=== PATIENT | female | born 1950 | race Caucasian/White ===

== ENCOUNTER → 2018-01-06 14:38 | Outpatient (CLI) | payer OTHER, MEDICARE, SELFPAY ==
--- NOTE | 2018-01-06 14:43 | CT_ITS ---
CT lung screening EXAM: CT LUNG LOW DOSE WO CONTRAST HISTORY: 30 pack-year smoking history asymptomatic for lung cancer ITS.REASON: HX TOBACCO USE ORDERING PHYSICIAN: Nino Katz MD PATIENT AGE: 67 years COMPARISON: 06/01/2016 TECHNIQUE: The exam was performed on a GE [employer] Speed [address] scanner using 2.90 mGy CTDI. A low dose helical CT CHEST was performed on a multi-detector scanner. All CT scans at the facility use one or more dose reduction, viz: automated exposure control, ma/kV adjustment per patient size (including targeted exams where dose is matched to indication, i.e. head), or iterative reconstruction technique. The LDCT was performed in a facility that meets the criteria for the screening program. Data regarding this exam was submitted to ACR which is an approved registry. The order for this exam indicates that it came as a result of a lung cancer screening counseling shard decision-making visit that included all the elements required of such a visit including smoking cessation. The radiologist interpreting this exam meets the CMS criteria for the LDCT lung cancer screening program. The exam is reported using the Lung-RADS classification scale and reported to the ACR registry. NOTE: This study was performed for the specific purposes of lung cancer screening and is not an alternative to diagnostic chest CT. RADIATION DOSE: CTDI vol(CT dose Index-volume) = 2.90mG DLP (Dose Length Product) = 97.95 mGcm FINDINGS: Centrilobular emphysema with hyperinflation and attenuation of peripheral pulmonary vessels and bronchial thickening consistent with COPD. Scattered fibrotic changes are once again noted. The previously noted parenchymal opacity in the medial aspect of the right lower lobe is no longer apparent likely due to an area of infiltrate and or atelectasis. No new nodules are evident. No suspicious findings. Coronary artery calcifications are present. There is a small ventral abdominal wall hernia containing fat which is 4 cm below the xiphoid. IMPRESSION: 1. Lung RADS Category: 2, benign 2. Other findings: Centrilobular emphysema/COPD. Coronary artery calcifications Ventral abdominal wall hernia RECOMMENDATIONS: 12 month LDCT follow-up
== END ==
PROVIDERS: PCP Family Medicine; Visit Provider Family Medicine
DX: Z12.2 Encounter for screening for malignant neoplasm of respiratory organs (principal); Z87.891 Personal history of nicotine dependence

== ENCOUNTER → 2018-03-31 14:19 | Outpatient (CLI) | payer OTHER, MEDICARE, SELFPAY ==
[2018-03-31 14:53] LABS: Basophils # 0.1 K/mm3 (0-0.2); Basophils % 0.8 % (0.1-2.0); Eosinophils # 0.3 K/mm3 (0.0-0.4); Eosinophils % 4.5 % (0.1-12.0); Hematocrit 47.9 % (37.0-47.0); Hemoglobin 15.8 g/dL (12.2-16.2); Lymphocytes # 1.8 K/mm3 (0.7-4.5); Lymphocytes % 25.5 % (10-50); Mean Corpuscular Hemoglobin 30.9 pg (27.0-31.2); Mean Corpuscular Volume 93.7 fl (81-99); Mean Platelet Volume 7.5 fl (7.4-10.4); Monocytes # 0.4 K/mm3 (0.1-1.0); Neutrophils # 4.6 K/mm3 (1.8-7.8); Neutrophils % 64.2 % (37.0-80.0); Platelet Count 285 K/mm3 (142-424); Red Blood Count 5.11 M/mm3 (4.20-5.40); Red Cell Distribution Width 13.3 % (11.5-17.5); White Blood Count 7.1 K/mm3 (4.8-10.8)
[2018-03-31 15:28] LABS: Alanine Aminotransferase 31 U/L (12-78); Albumin Level 3.7 gm/dL (3.4-5.0); Albumin/Globulin Ratio 1.2 (1.1-1.8); Alkaline Phosphatase 79 U/L (46-116); Anion Gap 10.4 mEq/L (5-15); Aspartate Amino Transferase 14 U/L (15-37); Bilirubin,Total 0.7 mg/dL (0.2-1.0); Blood Urea Nitrogen 21 mg/dL (7-18); CKMB Relative Index 3.1 U/L (0-4.0); Calcium 9.3 mg/dL (8.5-10.1); Carbon Dioxide 33 mmol/L (21.0-32.0); Chloride 102 mmol/L (98-107); Chol/HDL Ratio 2.8 (1-3.5); Cholesterol 238 mg/dL (140-200); Creatine Kinase 39 U/L (26-192); Creatine Kinase MB 1.2 ng/ml (0.0-3.6); Creatinine,Serum 0.88 mg/dL (0.55-1.02); Estimated Glomerular Filt Rate 64 ml/min (>60); GFR (African American) 77 ML/MIN (>60); Glucose 106 mg/dL (74-106); HDL Cholesterol 84 mg/dL (29-89); LDL Cholesterol 132 mg/dL (0-130); Potassium 4.4 mmoL/L (3.5-5.1); Sodium 141 mmol/L (136-145); Thyroid Stimulating Hormone 1.65 uIU/ml (0.358-3.740); Total Protein,Serum 6.7 gm/dL (6.4-8.2); Triglycerides 112 mg/dL (30-200); Troponin I 0.14 ng/ml (0.00-0.06); VLDL Cholesterol 22 mg/dL (0-40)
== END ==
PROVIDERS: PCP Family Medicine; Visit Provider Family Medicine
DX: R07.9 Chest pain, unspecified (principal); E78.00 Pure hypercholesterolemia, unspecified
CPT/HCPCS: 36415; 80053; 80061; 82550; 82553; 84443; 84484; 85025; 93005

== ENCOUNTER → 2019-02-19 15:15 | Outpatient (CLI) | payer OTHER, MEDICARE, SELFPAY ==
--- NOTE | 2019-02-19 15:21 | CT_ITS ---
PROCEDURE: CT LUNG SCREENING CLINICAL INDICATION: HX TOBACCO USE Thirty pack-year smoking history asymptomatic for lung cancer COMPARISON: LDCTLCAS LDCT FOR LUNG CA SCREEN from 06/01/[address] lung screening from 01/06/2018 TECHNIQUE: The exam was performed on a GE Light Speed [address] scanner using 2.90 mGy CTDI. A low dose helical CT CHEST was performed on a multi-detector scanner. All CT scans at the facility use one or more dose reduction, viz: automated exposure control, ma/kV adjustment per patient size (including targeted exams where dose is matched to indication, i.e. head), or iterative reconstruction technique. The LDCT was performed in a facility that meets the criteria for the screening program. Data regarding this exam was submitted to ACR which is an approved registry. The order for this exam indicates that it came as a result of a lung cancer screening counseling shard decision-making visit that included all the elements required of such a visit including smoking cessation. The radiologist interpreting this exam meets the CMS criteria for the LDCT lung cancer screening program. The exam is reported using the Lung-RADS classification scale and reported to the ACR registry. NOTE: This study was performed for the specific purposes of lung cancer screening and is not an alternative to diagnostic chest CT. RADIATION DOSE: CTDI vol(CT dose Index-volume) = 2.90mG DLP (Dose Length Product) = 102.26 mGcm FINDINGS: Centrilobular emphysema, coronary artery calcification. Small hiatal hernia. There is a 7 mm nodular opacity in the right CP angle laterally which could be due to an area of fibrosis. OTHER FINDINGS: Ventral abdominal wall hernia containing fat. 2.7 cm left adrenal nodule unchanged IMPRESSION: Lung rads category 3 probably benign. 7 mm nodular opacity right lung base laterally. Recommend six-month CT follow-up Dictated by: Pito العلي MD 02/25/2019 20:33 Electronically signed by Pito العلي MD in [place] 02/25/2019 20:33
== END ==
PROVIDERS: PCP Family Medicine; Visit Provider Family Medicine
DX: Z87.891 Personal history of nicotine dependence (principal); Z12.2 Encounter for screening for malignant neoplasm of respiratory organs

== ENCOUNTER → 2019-04-24 13:54 | Outpatient (CLI) | payer MEDICARE, SELFPAY ==
--- NOTE | 2019-04-24 14:03 | XR_ITS ---
PROCEDURE: XR LUMBAR SPINE 2-3V CLINICAL INDICATION: RT JOINT AIN COMPARISON: No exams were available for comparison FINDINGS: There is no acute fracture or dislocation. There is multilevel degenerative disc disease from L1-2 to L4-5. Greatest loss of disc space height is L4-5. Mild sclerosis of both sacroiliac joints compatible with sacroiliitis is noted. Atherosclerotic calcifications are incidentally noted in the abdominal aorta and iliac vessels. IMPRESSION: No acute findings. Dictated by: Harley Rendon 04/24/2019 15:28 Electronically signed by Harley Rendon in [place] 04/24/2019 15:28
--- NOTE | 2019-04-24 14:03 | XR_ITS ---
PROCEDURE: XR HIP RT 2-3V W/PELVIS CLINICAL INDICATION: RT LOWER LEG JOINT PAIN COMPARISON: PELAP PELVIS AP ONLY from 06/02/2013 FINDINGS: No fracture or dislocation is evident. There is mild osteitis pubis and bilateral sacroiliitis and degenerative disc disease is noted at L4-5, L5-S1. No lytic or blastic change. Unremarkable soft tissues. IMPRESSION: No acute findings. Dictated by: Harley Rendon 04/24/2019 15:30 Electronically signed by Harley Rendon in [place] 04/24/2019 15:30
--- NOTE | 2019-04-24 14:03 | XR_ITS ---
PROCEDURE: XR KNEE RT 3V CLINICAL INDICATION: RT LOWER LEG JOINT PAIN COMPARISON: No exams were available for comparison FINDINGS: No fracture or dislocation. No lytic or blastic change. There is normal mineralization. There is mild degenerative loss of the medial compartment cartilaginous joint space. No erosive changes evident. Other findings:Chondrocalcinosis is seen at medial and lateral compartment joint spaces. IMPRESSION: Mild degenerative findings, no acute findings. Dictated by: Harley Rendon 04/24/2019 15:25 Electronically signed by Harley Rendon in [place] 04/24/2019 15:25
== END ==
PROVIDERS: PCP Family Medicine; Visit Provider Family Medicine
DX: M25.561 Pain in right knee (principal)
CPT/HCPCS: 72100; 73502; 73562

== ENCOUNTER → 2019-05-07 10:20 | Outpatient (CLI) | payer MEDICARE, SELFPAY ==
--- NOTE | 2019-05-07 10:23 | MM_ITS ---
PROCEDURE: MM DIG SCREENING MAMM BI W/CAD BILATERAL DIGITAL BREAST TOMOSYNTHESIS INCLUDED Patient Age:69Y CLINICAL INDICATION: SCREENING 69-year-old. No hormones no new complaints noncontributory family history COMPARISON: No exams were available for comparison previous mammogram studies have been purged,, done 20 years ago TECHNIQUE: Standard CC and MLO images were obtained. R2 CAD reviewed. Bilateral digital breast tomosynthesis included FINDINGS: Moderate residual scattered fibroglandular densities, most evident throughout superior breast bilateral. Right breast no areas of concern. Follow-up right mammogram 1 year Left breast: Minimal asymmetric areasdensity left breast, more most notable area at the central breast noted. However the tomosynthesis views suggest that this is due to overlapping fibroglandular elements with no definitive underlying lesion. I would recommend encourage follow-up 1 year for ongoing evaluation IMPRESSION: Mild asymmetry but no discrete area of significant concern at this time Bilateral follow-up 1 year recommended and and should be emphasized/encouraged to confirm baseline appearance. BI-RAD Category: 2 Benign Finding(s) FOLLOW-UP: 1YR 1 Year Follow-up (A letter has been sent to the patient regarding results of the study.) Dictated by: Hoang Stevenson MD 05/10/2019 09:36 Electronically signed by Hoang Stevenson MD in [place] 05/10/2019 09:36
== END ==
PROVIDERS: PCP Family Medicine; Visit Provider Family Medicine
DX: Z12.31 Encounter for screening mammogram for malignant neoplasm of breast (principal)
CPT/HCPCS: 77063; 77067

== ENCOUNTER → 2019-09-12 10:42 | Outpatient (CLI) | payer MEDICARE, SELFPAY ==
--- NOTE | 2019-09-12 10:47 | CT_ITS ---
PROCEDURE: CT LUNG SCREENING CLINICAL INDICATION: LUNG NODULE 45 pack year smoking history Quit 10 years ago COMPARISON: LDCTLCAS LDCT FOR LUNG CA SCREEN from 06/01/2016 TECHNIQUE: The exam was performed on a GE [employer] Speed [address] scanner using 2.90 mGy CTDI. A low dose helical CT CHEST was performed on a multi-detector scanner. All CT scans at the facility use one or more dose reduction, viz: automated exposure control, ma/kV adjustment per patient size (including targeted exams where dose is matched to indication, i.e. head), or iterative reconstruction technique. The LDCT was performed in a facility that meets the criteria for the screening program. Data regarding this exam was submitted to ACR which is an approved registry. The order for this exam indicates that it came as a result of a lung cancer screening counseling shard decision-making visit that included all the elements required of such a visit including smoking cessation. The radiologist interpreting this exam meets the CMS criteria for the LDCT lung cancer screening program. The exam is reported using the Lung-RADS classification scale and reported to the ACR registry. NOTE: This study was performed for the specific purposes of lung cancer screening and is not an alternative to diagnostic chest CT. RADIATION DOSE: CTDI vol(CT dose Index-volume) = 2.90mG DLP (Dose Length Product) = 101.34 mGcm Lung Rads Category: FINDINGS: COPD with centrilobular emphysema and scattered areas of scarring OTHER FINDINGS: There are coronary artery calcifications. There is a ventral abdominal wall hernia which contains fat 3 cm inferior to the xiphoid 2.7 cm left adrenal nodule measuring near 6 Hounsfield units consistent with an adenoma. 1 cm hypodensity right hepatic lobe image 74 indeterminate IMPRESSION: 1. Lung rads category 1, negative 2. Recommend annual LD CT 3. Ventral abdominal wall hernia containing fat 4. Left adrenal nodule which may be due to an adenoma. 5. Indeterminate 1 cm right hepatic lobe hypodense lesion. CT or MRI with hemangioma protocol may provide further evaluation Dictated by: Pito العلي MD 09/16/2019 13:24 Electronically signed by Pito العلي MD in [place] 09/16/2019 13:24
== END ==
PROVIDERS: PCP Family Medicine; Visit Provider Family Medicine
DX: Z87.891 Personal history of nicotine dependence (principal); Z12.2 Encounter for screening for malignant neoplasm of respiratory organs

== ENCOUNTER 2019-10-22 14:15 | Emergency (ER) | payer MEDICARE, SELFPAY ==
[2019-10-22 14:20] VITALS: BP 163/101; PULSE 87; RESP 20; O2SAT 88; BMI 29.2
--- NOTE | 2019-10-22 14:38 | HMH.EDGENADL ---
ED Disposition Clinical Impression: Hypertension Qualifiers: Hypertension type: essential hypertension Qualified Code(s): I10 - Essential (primary) hypertension Disposition: Home, Self-Care Condition on Discharge: Good Instructions: DI for High Blood Pressure Referrals: Omayra Ruiz [Primary Care Provider] - 3 days - Critical Care Critical Care Time: No Attestation: On 10/22/19, the high probability of a clinically significant, sudden or life threatening deterioration of the following system(s) required my full and direct attention, intervention and personal management. The time I documented below is in addition to time spent performing reported procedures but includes the following listed in this critical care notation. Medical Decision Making - Medical Records Medical records reviewed: Yes: I reviewed the patient's medical records. - [place] Inquiry Pt receiving controlled substance: No Vital Signs: 10/22/19 14:20 Pulse Rate [Radial] 87 Respiratory Rate 20 Blood Pressure [Right Arm] 163/101 H Blood Pressure Mean [Right Arm] 121 Blood Pressure Source [Right Arm] Automatic Cuff Blood Pressure Position [Right Arm] Sitting 02 Sat by Pulse Oximetry 88 L Oxygen Delivery Method Room Air Medical Decision Narrative: Patient is very anxious, but after she calmed down we talk more about blood pressure control and things to be concerned about with acute blood pressure issue such as lateralizing motor or sensory changes, acute chest pain or shortness of breath, lightheadedness, etc. After some education about blood pressure management and symptoms to be concerned about, patient is feeling much better, actually tells me that she does not have any symptoms currently and does not want to move forward with further work-up. I have offered labs, CT head, EKG, but she is feeling much better and her blood pressure is actually 145 systolic, down from 163 systolic on initial presentation. I have offered our services if she changes her mind about further work-up, but she would like to go home at this time and is discharged. She does not currently exhibit any signs consistent with CVA, ACS, PE, hypertensive emergency. General Adult HPI - General Chief complaint: Recheck/Abnormal Lab/Rx Stated complaint: Blood Pressure high Time Seen by Provider: 10/22/19 14:30 Mode of Arrival: Ambulatory Limitations: No Limitations Description of Symptoms (Recalled from ER Triage Doc. by RN): Per patient she checked her BP this morning and it was high. Complaint of headache and left shoulder pain. - History of Present Illness HPI narrative: This is a 69-year-old female with a past medical history significant for anxiety, hypertension, COPD who presents to the emergency department after noticing high blood pressure at home. She has been having headaches intermittently for quite some time and intermittent left shoulder pain. She does not have any chest pain or shortness of breath. Patient states that she takes 3 blood pressure medications and takes her blood pressure 3 times daily. She is very concerned about her blood pressure because it does not ever seem to be under good control. She states that she has been very anxious lately as well because she mostly stays in her house without seeing anyone and does not allow anyone to come see her. She has not had any recent fevers, vomiting, diarrhea or new cough. She does not currently have a headache or shoulder pain, though she has had these occasionally over the last several weeks. - Related Data Home Medications Medication Instructions Recorded Confirmed Amlodipine Besylate [Amlodipine 5 mg PO DAILY 03/28/19 04/02/19 5mg tab] Citalopram Hydrobromide [Celexa] 10 mg PO DAILY 03/28/19 04/02/19 Losartan/Hydrochlorothiazide 1 each PO DAILY 03/28/19 04/02/19 [Losartan-Hctz 100-25 mg Tab] Allergies Allergy/AdvReac Type Severity Reaction Status Date / Time codeine [CODEINE] A
[2019-10-22 14:42] VITALS: BP 145/84; PULSE 75; RESP 18; TEMP 36.7; O2SAT 96
== END 2019-10-22 14:43 | disposition home or self-care (01) ==
PROVIDERS: Emergency Provider Emergency Medicine; PCP Family Medicine
DX: I16.0 Hypertensive urgency (principal); R51 Headache; M25.512 Pain in left shoulder; J44.9 Chronic obstructive pulmonary disease, unspecified; D64.9 Anemia, unspecified; F41.9 Anxiety disorder, unspecified; Z88.5 Allergy status to narcotic agent; Z90.49 Acquired absence of other specified parts of digestive tract; Z79.899 Other long term (current) drug therapy
CPT/HCPCS: 99281

== ENCOUNTER → 2020-07-09 13:09 | Outpatient (CLI) | payer MEDICARE, SELFPAY ==
--- NOTE | 2020-07-09 13:12 | MM_ITS ---
PROCEDURE INFORMATION: Exam: MG Screening 3D Mammography Exam date and time: 07/09/2020 1:12 PM Age: 70 years old Clinical indication: Screening mammogram TECHNIQUE: Imaging protocol: Screening tomosynthesis and 2D mammography including computer-aided detection (CAD) when performed. COMPARISON: MG MM DIG SCREENING MAMM BI W/CAD 05/07/2019 10:25 AM FINDINGS: MAMMOGRAPHY: Breast composition: The breast tissue is heterogeneously dense, which may obscure small masses. Mass: None. Architectural distortion: No new or suspicious architectural distortion. Calcifications: Stable benign-appearing calcifications are present. No new or suspicious cluster of microcalcifications have developed. Asymmetric density: No new or suspicious asymmetric density is present Skin thickening: None. Axillary adenopathy: None. IMPRESSION: No mammographic evidence of malignancy. Recommend annual screening mammography unless otherwise clinically indicated. ASSESSMENT: BI-RADS category 2: Benign
== END ==
PROVIDERS: PCP Family Medicine; Visit Provider Family Medicine
DX: Z12.31 Encounter for screening mammogram for malignant neoplasm of breast (principal)
CPT/HCPCS: 77063; 77067

== ENCOUNTER → 2021-08-15 10:44 | Outpatient (CLI) | payer MEDICARE, SELFPAY | PROVIDERS: PCP Family Medicine; Visit Provider Ophthalmology | DX: Z01.812 Encounter for preprocedural laboratory examination (principal); Z20.822 Contact with and (suspected) exposure to COVID-19 | CPT/HCPCS: C9803; U0003; U0005 ==

== ENCOUNTER 2021-08-18 08:55 | Day surgery (SDC) | payer MEDICARE, SELFPAY ==
[2021-08-17 11:43] VITALS: BMI 27.4
[2021-08-18] VITALS (7 sets, daily range): BP systolic 136–165; BP diastolic 61–71; PULSE 53–60; RESP 16–18; TEMP 36.4–37; O2SAT 93–100
--- NOTE | 2021-08-18 12:32 | SUR.PHASEII ---
Patient had YAG procedure then returned to preop for cataract procedure. Patient tolerated YAG procedure well
== END 2021-08-18 12:00 | disposition home or self-care (01) ==
LOC: OUTP 08:57
PROVIDERS: PCP Family Medicine; Visit Provider Ophthalmology
PROC: (CPT 66821; principal; 2021-08-18 10:00)
DX: H26.9 Unspecified cataract (principal); J44.9 Chronic obstructive pulmonary disease, unspecified; M19.90 Unspecified osteoarthritis, unspecified site; F41.9 Anxiety disorder, unspecified; Z86.79 Personal history of other diseases of the circulatory system
CPT/HCPCS: 66984; V2632

== ENCOUNTER 2021-10-30 08:49 | Emergency (ER) | payer MEDICARE, SELFPAY ==
--- NOTE | 2021-10-30 09:29 | EXP.UTC ---
Discharge Plan Disposition Patient Disposition: Home, Self-Care Condition: Good Prescriptions Prescriptions: New Paxlovid (EUA) 300 mg (150 mg x 2)-100 mg tablet See Rx Instructions PO .COMPLEX Qty: 30 0RF Rx Instructions: take TWO 150 mg tablets of nirmatrelvir with ONE 100 mg tablet of ritonavir twice daily for 5 days azithromycin [Zithromax] 250 mg tablet 250 mg PO UD DOSE PK Qty: 6 0RF Rx Instructions: Take two (2) tablets today, then one (1) tablet days #2 thru #5 benzonatate [benzonatate] 100 mg capsule 100 mg PO TIDP PRN (Reason: Cough) Qty: 30 0RF methylprednisolone 4 mg Tablets,Dose Pack 4 mg PO DIRECTED Qty: 21 0RF No Action citalopram 10 MG tablet 10 mg PO DAILY amlodipine 5 MG tablet 10 mg PO DAILY hydrochlorothiazide 25 MG tablet 25 mg PO DAILY losartan 100 MG tablet 100 mg PO DAILY Referrals Referrals: Omayra Ruiz [Primary Care Provider] - Enter time for follow up Activity Restrictions/Add. Instructions Additional Instructions/Restrictions: Drink plenty of fluids. Take tylenol or ibuprofen for pain or fever. Take the medications as directed. Follow up with your regular doctor. GO TO THE ER FOR ANY WORSENING SYMPTOMS Quarantine until you know the results of your covid-19 test. Notify your school or workplace of your results and follow their instructions regarding return to work/school. Clinical Impressions Clinical Impression: Close exposure to COVID-19 virus, Acute bronchitis Instructions Patient Instructions: Acute Bronchitis, DI for Acute Bronchitis, Coronavirus Disease 2019, Preventing the Spread of Coronavirus Discharge Instructions Discharge ED Provider: Luke Conner [facility] HPI General Stated complaint: Cough, fever,headache, covid test Time Seen by Provider: 10/30/21 09:28 History of Present Illness Provider Complaint: He states that for the past 2 days he has had sinus congestion, sore throat and body aches. Related Data Home Medications Medication Instructions Recorded Confirmed amlodipine 5 mg tablet 10 mg PO DAILY bp 03/28/19 10/30/21 citalopram 10 mg tablet 10 mg PO DAILY Anxiety 03/28/19 10/30/21 hydrochlorothiazide 25 mg tablet 25 mg PO DAILY bp 08/17/21 10/30/21 losartan 100 mg tablet 100 mg PO DAILY BP 08/17/21 10/30/21 Previous Rx's Medication Instructions Recorded azithromycin 250 mg tablet 250 mg PO UD DOSE PK #6 tabs 10/30/21 (Zithromax) benzonatate 100 mg capsule 100 mg PO TIDP PRN Cough #30 caps 10/30/21 methylprednisolone 4 mg tablets in 4 mg PO DIRECTED #21 tabs 10/30/21 a dose pack nirmatrelvir 300 mg (150 mg x See Rx Instructions PO .COMPLEX 10/30/21 2)-ritonavir 100 mg tablet (EUA) #30 tabs (Paxlovid 300 mg () Allergies Allergy/AdvReac Type Severity Reaction Status Date / Time codeine [CODEINE] Allergy Mild NA-NAUSEA/V Verified 10/30/21 09:39 OMITING acetaminophen [From [facility]] Allergy Unknown NA-NAUSEA/V Verified 10/30/21 09:39 OMITING hydrocodone [From [facility]] Allergy Unknown NA-NAUSEA/V Verified 10/30/21 09:39 OMITING morphine [MORPHINE] AdvReac Intermediate SICK-VOMITI Verified 10/30/21 09:39 NG albuterol AdvReac Mild Anxiety Verified 10/30/21 09:39 [facility] Social History Smoking Status: Former smoker second hand exposure: No alcohol intake: never substance use type: denies use current occupational status: retired household members: spouse housing: house current occupational exposures/hazards: No caffeine: Yes ROS Obtained: Yes All systems reviewed & no additional complaints except as documented Constitutional Constitutional: Reports chills and Reports fever(s) Eyes Eyes: Denies eye discharge ENT Ears, Nose, Mouth, and Throat: Reports as per HPI Cardiovascular Cardiovascular: Denies chest pain Respiratory Respiratory: Denies chest
[2021-10-30 09:35] VITALS: BP 163/58; PULSE 60; RESP 18; TEMP 37.1; O2SAT 96; BMI 27.4
[2021-10-30 10:13] VITALS: BP 163/58; PULSE 60; RESP 18; TEMP 37.1
== END 2021-10-30 10:21 | disposition home or self-care (01) ==
PROVIDERS: Emergency Provider Nurse Practitioner Family; PCP Family Medicine
DX: J20.9 Acute bronchitis, unspecified (principal); J02.9 Acute pharyngitis, unspecified; R51.9 Headache, unspecified; R11.0 Nausea; Z20.822 Contact with and (suspected) exposure to COVID-19; Z79.52 Long term (current) use of systemic steroids; Z88.5 Allergy status to narcotic agent; Z88.6 Allergy status to analgesic agent; Z88.8 Allergy status to other drugs, medicaments and biological substances; Z87.891 Personal history of nicotine dependence
CPT/HCPCS: 99213; C9803; G0463; U0003; U0005

== ENCOUNTER 2022-04-24 15:59 | Emergency (ER) | payer MEDICARE, SELFPAY ==
[2022-04-24] VITALS (7 sets, daily range): BP systolic 114–143; BP diastolic 50–72; PULSE 80–89; RESP 16; TEMP 36.6–36.7; O2SAT 90–96; BMI 29.2
--- NOTE | 2022-04-24 16:31 | CT_ITS ---
PROCEDURE INFORMATION: Exam: CT Abdomen And Pelvis Without Contrast Exam date and time: 04/24/2022 4:39 PM Age: 71 years old Clinical indication: Abdominal pain; Flank; Left lower quadrant (llq); Additional info: R/O kidney stone-- TECHNIQUE: Imaging protocol: Computed tomography of the abdomen and pelvis without contrast. Radiation optimization: All CT scans at this facility use at least one of these dose optimization techniques: automated exposure control; mA and/or kV adjustment per patient size (includes targeted exams where dose is matched to clinical indication); or iterative reconstruction. Other protocol: This patient has received 0 known CTs and 0 known cardiac nuclear medicine studies in the 12 months prior to the current study. COMPARISON: CR XR HIP RT 2-3V W/PELVIS 04/24/2019 2:08 PM FINDINGS: Lungs: Emphysematous changes at the lung bases. Liver: Small hypodensities x2 difficult to characterize fully. They are probably simple cysts or hemangiomas. No other acute changes. Gallbladder and bile ducts: Absent gallbladder. Normal bile ducts. Pancreas: Normal. No ductal dilation. Spleen: Normal. No splenomegaly. Adrenal glands: 3.8 cm left adrenal mass. Hounsfield units are -19 at the low end and a mean of 30. The right adrenal gland is normal. Kidneys and ureters: 8.6 cm simple left renal cortical cyst. No stones or hydronephrosis. Stomach and bowel: Mildly prominent loops of small intestine with mucosal edema. Most of the prominent loops are in the left flank. The remaining intestine is unremarkable. No other inflammatory change. No obstruction. Appendix: No evidence for appendicitis. Normal diameter. No inflammation. Intraperitoneal space: Unremarkable. No free air. No significant fluid collection. Vasculature: Unremarkable. No abdominal aortic aneurysm. Lymph nodes: Unremarkable. No enlarged lymph nodes. Urinary bladder: Unremarkable as visualized. Reproductive: Normal uterus. No adnexal masses or fluid collections. Bones/joints: Unremarkable. No acute fracture. Soft tissues: Unremarkable. IMPRESSION: 1. Mild nonspecific changes to the small intestine, most likely viral enteritis or a food-borne illness. No bowel obstruction. 2. 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 3. Large simple left renal cortical cyst. 4. No renal tract stones. COMMENTS: 1. Consistent with the [employer] [place] [employer]'s Incidental Findings Committee white paper (J Am Jorge Radiol 2017): For any incidental adrenal lesion greater than or equal to 1 cm but less than or equal to 4 cm classified in this report as benign, likely benign, or containing fat (including classification as an adenoma or myelolipoma), no follow-up imaging is recommended per consensus recommendations based on imaging criteria. Further lab evaluation could be pursued if warranted based on clinical findings. 2. Consistent with the [employer] [place] [employer]'s Incidental Findings Committee white paper (J Am Jorge Radiol 2018): Any incidental renal lesion less than 1 cm or classified as too small to characterize, or any incidental cystic renal lesion characterized as simple-appearing, is likely benign. No follow-up imaging is recommended for these lesions per consensus recommendations based on imaging criteria.
[2022-04-24 16:37] LABS: Microscopic, Urine URINE MICROSCOPIC (MICROSCOPIC)
[2022-04-24 16:38] LABS: Appearance,Urine SL CLOUDY (Clear); Bilirubin,Urine Negative (Negative); Blood, Urine 2+ (Negative); Color,Urine YELLOW (Yellow); Glucose,Urine (UA) Negative (Negative); Ketones,Urine TRACE (Negative); Leukocyte Esterase,Urine 1+ (Negative); Nitrate,Urine POSITIVE (Negative); Protein,Urine 1+ (Negative); Urobilinogen,Urine 0.2 EU/dl (0.2)
[2022-04-24 16:40] LABS: Basophils # 0.1 K/mm3 (0-0.2); Basophils % 0.7 % (0.1-2.0); Eosinophils # 0.1 K/mm3 (0.0-0.4); Eosinophils % 1.7 % (0.1-12.0); Hematocrit 44.7 % (37.0-47.0); Lymphocytes % 13.5 % (10-50); Mean Corpuscular HGB Conc 33.5 g/dL (31.8-35.4); Mean Corpuscular Hemoglobin 30.3 pg (27.0-31.2); Mean Corpuscular Volume 90.6 fl (81-99); Mean Platelet Volume 8.2 fl (7.4-10.4); Monocytes # 0.4 K/mm3 (0.1-1.0); Monocytes % 4.7 % (1.7-9.3); Neutrophils % 79.4 % (37.0-80.0); Platelet Count 214 K/mm3 (142-424); Red Blood Count 4.93 M/mm3 (4.20-5.40); Red Cell Distribution Width 12.9 % (11.5-17.5); White Blood Count 7.5 K/mm3 (4.8-10.8)
[2022-04-24 16:41] LABS: Chloride 98 mmol/L (98-107)
[2022-04-24 16:42] LABS: Sodium 140 mmol/L (136-145)
[2022-04-24 16:44] LABS: Alanine Aminotransferase 21 U/L (12-78); Aspartate Amino Transferase 24 U/L (14-36); Blood Urea Nitrogen 19 mg/dl (7-17); Creatinine Clearance Estimated 57 mL/min (50-200); Estimated Glomerular Filt Rate 70 ml/min (>60); GFR (African American) 85 ML/MIN (>60)
[2022-04-24 16:45] LABS: Albumin Level 4.5 g/dl (3.5-5.0); Albumin/Globulin Ratio 1.7 (1.1-1.8); Alkaline Phosphatase 78 U/L (38-126); Calcium 9.1 mg/dl (8.4-10.2); Carbon Dioxide 39 mmol/L (22.0-30.0); Globulin 2.7 g/dL (1.3-3.2); Glucose 110 mg/dl (74-100); Total Protein,Serum 7.2 g/dl (6.3-8.2)
[2022-04-24 16:52] LABS: Bacteria,Urine 1+ /lpf
--- NOTE | 2022-04-24 17:02 | HMH.EDGENADL ---
Discharge Plan Disposition Patient Disposition: Home, Self-Care Condition: Good Prescriptions Prescriptions: New cefdinir 300 mg capsule 300 mg PO BID 10 Days Qty: 20 0RF No Action Paxlovid (EUA) 300 mg (150 mg x 2)-100 mg tablet See Rx Instructions PO .COMPLEX Qty: 30 0RF Rx Instructions: take TWO 150 mg tablets of nirmatrelvir with ONE 100 mg tablet of ritonavir twice daily for 5 days azithromycin [Zithromax] 250 mg tablet 250 mg PO UD DOSE PK Qty: 6 0RF Rx Instructions: Take two (2) tablets today, then one (1) tablet days #2 thru #5 benzonatate [benzonatate] 100 mg capsule 100 mg PO TIDP PRN (Reason: Cough) Qty: 30 0RF methylprednisolone 4 mg Tablets,Dose Pack 4 mg PO DIRECTED Qty: 21 0RF citalopram 10 MG tablet 10 mg PO DAILY amlodipine 5 MG tablet 10 mg PO DAILY hydrochlorothiazide 25 MG tablet 25 mg PO DAILY losartan 100 MG tablet 100 mg PO DAILY Referrals Follow up/Referrals: Omayra Ruiz [Primary Care Provider] - See instructions Activity Restrictions/Add. Instructions Additional Instructions/Restrictions: Omnicef as prescribed. Urine culture has been performed, results generally take 2 to 3 days. Follow-up the results of this test with your primary care provider within 2 to 3 days. Continue Tylenol or ibuprofen for pain. Clinical Impressions Clinical Impression: Back pain Instructions Patient Instructions: DI for Low Back Pain Discharge ED Provider: Mychal To General Adult HPI General Chief complaint: Abdominal Pain Stated complaint: back pain, difficult urination Time Seen by Provider: 04/24/22 16:56 Mode of Arrival: Ambulatory Source of Information: Patient Limitations: No Limitations Description of Symptoms (Recalled from ER Triage Doc. by RN): pt comes in with c/o left kidney/back pain. ongoing for a few days. pt reports chills also. History of Present Illness HPI narrative: Patient states that for a few days she has left-sided lower back pain which she thinks is coming from her kidney. She states that she has had 1 previous kidney stone. She thought this might be a kidney stone because the pain traveled today to her left suprapubic area as well, so she thought it might be a stone that was moving. She says that she also had a fever 1 day. She complains of some urinary frequency and slight urgency. No hematuria noted. No vomiting. She is also concerned about a UTI. Related Data Home Medications Medication Instructions Recorded Confirmed amlodipine 5 mg tablet 10 mg PO DAILY bp 03/28/19 10/30/21 citalopram 10 mg tablet 10 mg PO DAILY Anxiety 03/28/19 10/30/21 hydrochlorothiazide 25 mg tablet 25 mg PO DAILY bp 08/17/21 10/30/21 losartan 100 mg tablet 100 mg PO DAILY BP 08/17/21 10/30/21 Previous Rx's Medication Instructions Recorded azithromycin 250 mg tablet 250 mg PO UD DOSE PK #6 tabs 10/30/21 (Zithromax) benzonatate 100 mg capsule 100 mg PO TIDP PRN Cough #30 caps 10/30/21 methylprednisolone 4 mg tablets in 4 mg PO DIRECTED #21 tabs 10/30/21 a dose pack nirmatrelvir 300 mg (150 mg See Rx Instructions PO .COMPLEX 10/30/21 x2)-ritonavir 100 mg tablet,dose #30 tabs pack(EUA) (Paxlovid) cefdinir 300 mg capsule 300 mg PO BID 10 days #20 caps 04/24/22 Allergies Allergy/AdvReac Type Severity Reaction Status Date / Time codeine [CODEINE] Allergy Mild NA-NAUSEA/V Verified 10/30/21 09:39 OMITING acetaminophen [From LORTAB] Allergy Unknown NA-NAUSEA/V Verified 10/30/21 09:39 OMITING hydrocodone [From LORTAB] Allergy Unknown NA-NAUSEA/V Verified 10/30/21 09:39 OMITING morphine [MORPHINE] AdvReac Intermediate SICK-VOMITI Verified 10/30/21 09:39 NG albuterol AdvReac Mild Anxiety Verified 10/30/21 09:39 [facility] Disclaimer: The information contained in this section may have been updated after the patient was seen, as this information can be updated by other
[2022-04-24 17:08] LABS: Lipase 83 U/L (23-300)
--- NOTE | 2022-04-24 17:15 | PC.NURSE ---
ROUNDED ON PT NO COMPLAINTS AT THIS TIME,DIMMED THE LIGHT SO PT COULD REST
== END 2022-04-24 18:35 | disposition home or self-care (01) ==
PROVIDERS: Emergency Provider Emergency Medicine; PCP Family Medicine
DX: M54.50 Low back pain, unspecified (principal); R35.0 Frequency of micturition; R39.15 Urgency of urination; Z87.891 Personal history of nicotine dependence
CPT/HCPCS: 74176; 80053; 81001; 83690; 85025; 87086; 87088; 87186; 96360; 99285; J0696

== ENCOUNTER 2023-01-30 19:20 | Emergency (ER) | payer MEDICARE, SELFPAY ==
[2023-01-30 19:34] VITALS: BP 144/71; PULSE 82; RESP 18; TEMP 37.4; O2SAT 95; BMI 27.4
--- NOTE | 2023-01-30 19:52 | XR_ITS ---
PROCEDURE INFORMATION: Exam: XR Chest Exam date and time: 01/30/2023 7:57 PM Age: 72 years old Clinical indication: Dyspnea TECHNIQUE: Imaging protocol: Radiologic exam of the chest. Views: 1 view. COMPARISON: CT LUNG SCREENING 09/12/2019 10:53 AM FINDINGS: Lungs: No evidence of acute pulmonary disease or infiltrates; lung vega appear clear. Pleural spaces: No evidence of pleural effusion, pneumothorax, or pleural thickening in the visualized pleural spaces. Heart/Mediastinum: Stable cardiac and mediastinal contours. Vasculature: There are calcifications of the aortic arch. Diaphragm: There is elevation of the right hemidiaphragm. Bones/joints: No evidence of acute osseous abnormalities within the visualized portions of the thoracic spine and ribs. Osseous structures appear appropriate for patient age. IMPRESSION: No dense parenchymal consolidation, pleural effusion, or pneumothorax.
--- NOTE | 2023-01-30 19:54 | HMH.EDGENADL ---
Discharge Plan Disposition Patient Disposition: Home, Self-Care Prescriptions Prescriptions: New benzonatate 100 mg capsule 100 mg PO TID PRN (Reason: cough) 5 Days Qty: 20 0RF albuterol sulfate 90 mcg/actuation HFA aerosol inhaler 4 inh inhalation Q4H PRN (Reason: shortness of breath or wheezing) Qty: 8.5 0RF Rx Instructions: 4 puffs every 4 hours for 48 hours then as needed for shortness of breath or wheezing following Paxlovid 300 mg (150 mg x 2)-100 mg tablets,dose pack See Rx Instructions .ROUTE .COMPLEX Qty: 30 0RF Rx Instructions: take TWO 150 mg tablets of nirmatrelvir with ONE 100 mg tablet of ritonavir twice daily for 5 days No Action Paxlovid 300 mg (150 mg x 2)-100 mg tablet See Rx Instructions PO .COMPLEX Qty: 30 0RF Rx Instructions: take TWO 150 mg tablets of nirmatrelvir with ONE 100 mg tablet of ritonavir twice daily for 5 days azithromycin [Zithromax] 250 mg tablet 250 mg PO UD DOSE PK Qty: 6 0RF Rx Instructions: Take two (2) tablets today, then one (1) tablet days #2 thru #5 benzonatate [benzonatate] 100 mg capsule 100 mg PO TIDP PRN (Reason: Cough) Qty: 30 0RF methylprednisolone 4 mg Tablets,Dose Pack 4 mg PO DIRECTED Qty: 21 0RF citalopram 10 MG tablet 10 mg PO DAILY amlodipine 5 MG tablet 10 mg PO DAILY hydrochlorothiazide 25 MG tablet 25 mg PO DAILY losartan 100 MG tablet 100 mg PO DAILY cefdinir 300 mg capsule 300 mg PO BID 10 Days Qty: 20 0RF Referrals Follow up/Referrals: Omayra Ruiz [Primary Care Provider] - See instructions Activity Restrictions/Add. Instructions Additional Instructions/Restrictions: Your symptoms today are consistent with COVID-19 and a COPD exacerbation. Please take your inhaler as prescribed and your cough medicine and the Paxlovid return with any worsening shortness of breath or other concerns. Clinical Impressions Clinical Impression: COVID-19, Acute exacerbation of chronic obstructive pulmonary disease Discharge ED Provider: Steffen Martinez General Adult HPI General Chief complaint: Upper Respiratory Infection Stated complaint: back pain, cough,congestion,tired Time Seen by Provider: 01/30/23 19:47 Mode of Arrival: Ambulatory Source of Information: Patient Limitations: No Limitations Description of Symptoms (Recalled from ER Triage Doc. by RN): pt states she had a +covid test at home today. pt states she has been sick for a few days. pt c/o myalgia, fatigue, SWANI, a productive cough with brown sputum, fever and burning/frequent urination. pt has a HX of COPD and uses 2L NC PRN. pts RA sat was 85%. upon placing 2L NC pt has increased to 95% which is her baseline. History of Present Illness HPI narrative: Patient is a 72-year-old with history of COPD presenting today with 2 days of cough headache sore throat chest pain with a home positive COVID test. States she also has some body aches and myalgias. Has had some wheezing is on 2 L nasal cannula at home with her COPD. She also complained of 2 days of urinary frequency and urgency. Related Data Home Medications Medication Instructions Recorded Confirmed amlodipine 5 mg tablet 10 mg PO DAILY bp 03/28/19 01/30/23 citalopram 10 mg tablet 10 mg PO DAILY Anxiety 03/28/19 01/30/23 hydrochlorothiazide 25 mg tablet 25 mg PO DAILY bp 08/17/21 01/30/23 losartan 100 mg tablet 100 mg PO DAILY BP 08/17/21 01/30/23 Previous Rx's Medication Instructions Recorded azithromycin 250 mg tablet 250 mg PO UD DOSE PK #6 tabs 10/30/21 (Zithromax) benzonatate 100 mg capsule 100 mg PO TIDP PRN Cough #30 caps 10/30/21 methylprednisolone 4 mg tablets in 4 mg PO DIRECTED #21 tabs 10/30/21 a dose pack nirmatrelvir 300 mg (150 mg See Rx Instructions PO .COMPLEX 10/30/21 x2)-ritonavir 100 mg tablet,dose #30 tabs pack (Paxlovid) cefdinir 300 mg capsule 300 mg PO BID 10 days #20 caps 04/24/22 albuterol sulfate 90 mcg/actu
[2023-01-30 19:56] VITALS: BP 144/71; PULSE 83; RESP 18; TEMP 36.7; O2SAT 95
[2023-01-30 20:10] LABS: Influenza A, PCR Not Detected (NotDetected); Influenza B, PCR Not Detected (NotDetected)
[2023-01-30 20:13] LABS: Basophils % 0.1 % (0.1-2.0); Eosinophils # 0.1 K/mm3 (0.0-0.4); Eosinophils % 1.4 % (0.1-12.0); Hematocrit 41.3 % (37.0-47.0); Hemoglobin 13.7 g/dL (12.2-16.2); Lymphocytes # 0.8 K/mm3 (0.7-4.5); Lymphocytes % 9.6 % (10-50); Mean Corpuscular HGB Conc 33.2 g/dL (31.8-35.4); Mean Corpuscular Hemoglobin 30.5 pg (27.0-31.2); Mean Platelet Volume 7.8 fl (7.4-10.4); Monocytes # 0.4 K/mm3 (0.1-1.0); Monocytes % 4.9 % (1.7-9.3); Neutrophils # 7.2 K/mm3 (1.8-7.8); Neutrophils % 83.9 % (37.0-80.0); Platelet Count 151 K/mm3 (142-424); Red Blood Count 4.49 M/mm3 (4.20-5.40); White Blood Count 8.6 K/mm3 (4.8-10.8)
[2023-01-30 20:21] VITALS: PULSE 81; PULSE 87
[2023-01-30 20:21] LABS: Alanine Aminotransferase 28 U/L (12-78); Albumin/Globulin Ratio 1.5 (1.1-1.8); Alkaline Phosphatase 65 U/L (38-126); Anion Gap 12.5 mEq/L (5-15); Aspartate Amino Transferase 41 U/L (14-36); Bilirubin,Total 0.8 mg/dl (0.2-1.3); Blood Urea Nitrogen 26 mg/dl (7-17); Calcium 8.3 mg/dl (8.4-10.2); Carbon Dioxide 30 mmol/L (22.0-30.0); Chloride 93 mmol/L (98-107); Creatinine Clearance Estimated 53 mL/min (50-200); Estimated Glomerular Filt Rate 70 ml/min (>60); GFR (African American) 85 ML/MIN (>60); Globulin 2.6 g/dL (1.3-3.2); Glucose 105 mg/dl (74-100); Potassium 3.5 mmoL/L (3.5-5.1); Sodium 132 mmol/L (136-145); Total Protein,Serum 6.6 g/dl (6.3-8.2)
[2023-01-30 20:32] LABS: Troponin I 0.03 ng/ml (0.00-0.034)
--- NOTE | 2023-01-30 20:43 | PC.NURSE ---
rounded on pt no needs at this time
[2023-01-30 20:56] LABS: Coronavirus 19, PCR Detected (NotDetected)
--- NOTE | 2023-01-30 21:00 | PC.NURSE ---
Patient has attempted to urinate for UA twice with no luck. Dr. Martinez made aware.
[2023-01-30 21:08] VITALS: BP 117/58; PULSE 78; RESP 18; TEMP 36.8
== END 2023-01-30 21:13 | disposition home or self-care (01) ==
PROVIDERS: Emergency Provider Student in an Organized Health Care Education/Training Program; PCP Family Medicine
DX: U07.1 COVID-19 (principal); J44.1 Chronic obstructive pulmonary disease with (acute) exacerbation; E87.1 Hypo-osmolality and hyponatremia; R07.9 Chest pain, unspecified; R50.9 Fever, unspecified; R51.9 Headache, unspecified; R05.9 Cough, unspecified; R09.81 Nasal congestion; R07.0 Pain in throat; R53.83 Other fatigue; R30.0 Dysuria; Z87.891 Personal history of nicotine dependence
CPT/HCPCS: 71045; 80053; 84484; 85025; 87636; 96361; 96372; 96374; 96375; 99284

== ENCOUNTER 2023-11-29 07:44 | Outpatient (CLI) | payer MEDICARE, SELFPAY ==
--- NOTE | 2023-11-29 07:48 | CT_ITS ---
FINAL REPORT CLINICAL HISTORY: SCREENING FORMER SMOKER QUIT 14 YEARS AGO. SMOKED 1.5 PPD X 30 YEARS COMPARISON: 09/22/2019 and 04/24/2022 FINDINGS: CT CHEST LOW DOSE SCREENING DOSE: CTDIvol: 2.90 mGy, DLP: 102.12 mGy*cm Axial CT without IV contrast administration using low dose protocol. This study was performed with techniques to keep radiation doses as low as reasonably achievable, (ALARA). Individualized dose reduction techniques using automated exposure control or adjustment of mA and/or kV according to the patient''s size were employed. FINDINGS: There is a 2 mm nodule in the central right upper lobe well seen on image 28 of series 4, unchanged. There is minimally increased density with mixture of ground-glass opacity and reticular nodular change in the left lower lobe, favor inflammatory. Findings are well seen on images 45-48 of series 4. Note is made of moderate emphysema. Limited images of the upper abdomen reveal a left adrenal mass measuring 36 mm, previously measured 32 mm. 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 There is an incompletely imaged left renal mass measuring 64 mm which was seen on previous CT dated 2022. No pleural or pericardial effusion is seen . No adenopathy or mass lesion is present . IMPRESSION: 1. New irregular density in the left lower lobe, strongly favor inflammatory or scarring over neoplasm. Left adrenal and renal masses considered benign. LUNG RADS CATEGORY 0 RECOMMENDATION: Two-month follow-up with attention to the left lower lobe density. Reviewed, Interpreted and Dictated by Felisha Ramirez MD Transcribed by Ruth Ann Silva Authenticated and [facility]
--- NOTE | 2023-11-29 07:49 | MM_ITS ---
PROCEDURE INFORMATION: Exam: MG Bilateral Screening 3D Mammography Exam date and time: 11/29/2023 7:49 AM Age: 73 years old Clinical indication: Screening examination TECHNIQUE: Imaging protocol: Bilateral Screening tomosynthesis and 2D mammography including computer-aided detection (CAD) when performed. COMPARISON: 1. MG MM DIG SCREENING MAMM BI W/CAD 07/09/2020 1:25 PM 2. MG MM DIG SCREENING MAMM BI W/CAD 05/07/2019 10:25 AM FINDINGS: MAMMOGRAPHY: Breast composition: There are scattered areas of fibroglandular density. Mass: No suspicious masses. Architectural distortion: None. Calcifications: No suspicious calcifications. Asymmetric density: None. Skin thickening: None. Axillary adenopathy: None. IMPRESSION: No mammographic evidence of malignancy. Annual screening is recommended unless otherwise clinically indicated. ASSESSMENT: BI-RADS Category 1: Negative.
--- NOTE | 2023-11-29 08:24 | XR_ITS ---
FINAL REPORT TECHNIQUE: Bone densitometry calculations of the lumbar spine and left hip were obtained. CLINICAL HISTORY: SCREENING FINDINGS: Using L1-4, the bone mineral density of the spine is 1.006 g/cm2, corresponding to T-score of -0.4. Using the left hip, the bone mineral density of the femoral neck is 0.724 g/cm2, corresponding to a T-score of -1.1. Using the right hip, the bone mineral density of the femoral neck is 0.745 g/cm2, corresponding to a T-score of -0.9. NOTE: T-score: Standard deviation compared with peak bone mass of young adult mean. *Following the recommendations of the International Society of Bone densitometry, classification of hip BMD is based on the lower of two T-scores; total hip or femoral neck. IMPRESSION: Normal bone mineral density of the lumbar spine. Diminished bone mineral density consistent with minimal osteopenia of the left hip. Diminished bone mineral density consistent with borderline osteopenia of the right hip. FRAX data reports 9.8% major osteoporotic fracture and 1.6% hip fracture. Reviewed, Interpreted and Dictated by Felisha Ramirez MD Transcribed by Ruth Ann Silva Authenticated and [facility]
== END 2023-11-29 23:59 | disposition home or self-care (01) ==
LOC: RAD 07:45
PROVIDERS: PCP Family Medicine; Visit Provider Family Medicine
DX: Z87.891 Personal history of nicotine dependence (principal); Z12.31 Encounter for screening mammogram for malignant neoplasm of breast; M81.0 Age-related osteoporosis without current pathological fracture; Z13.820 Encounter for screening for osteoporosis; Z78.0 Asymptomatic menopausal state
CPT/HCPCS: 71271; 77063; 77067; 77080

== ENCOUNTER 2024-01-16 14:49 | Outpatient (CLI) | payer MEDICARE, SELFPAY ==
--- NOTE | 2024-01-16 14:53 | CT_ITS ---
FINAL REPORT TECHNIQUE: Axial CT images were performed from the lung apices through the upper abdomen. Coronal reformats were submitted. This study was performed with techniques to keep radiation doses as low as reasonably achievable (ALARA). Individualized dose reduction techniques using automated exposure control or adjustment of mA and/or kV according to the patient's size were employed. CLINICAL HISTORY: ABNORMAL CHEST CT COMPARISON: 11/29/2023 FINDINGS: There is no axillary adenopathy. There is no hilar or mediastinal mass or adenopathy. There is moderate left coronary artery calcification. Heart size is normal. There is no pericardial or pleural effusion. Note is made of mild pulmonary scarring. Moderate emphysema is identified. There has been interval resolution in the left lower lobe opacity. Limited mages of the upper abdomen reveal a 41 mm heterogeneous mass in the left adrenal gland which is stable. There is a supraumbilical midline ventral hernia. Hernia sac measures 7.2 cm in transverse dimension. There is a partially imaged probable small hepatic cyst and nonspecific left renal mass. IMPRESSION: Interval resolution in the left lower lobe opacity. Stable left adrenal mass. Nonspecific left renal mass. Supraumbilical midline ventral hernia. Reviewed, Interpreted and Dictated by Norm Thomas III, MD Transcribed by Ruth Ann Silva Authenticated and [facility]
== END 2024-01-16 23:59 | disposition home or self-care (01) ==
LOC: RAD 14:50
PROVIDERS: PCP Family Medicine; Visit Provider Family Medicine
DX: R93.89 Abnormal findings on diagnostic imaging of other specified body structures (principal)
CPT/HCPCS: 71250

== ENCOUNTER 2024-02-12 13:35 | Emergency (ER) | payer MEDICARE, SELFPAY ==
[2024-02-12 13:50] VITALS: BP 163/110; PULSE 85; RESP 24; TEMP 37; O2SAT 89; BMI 31.5
--- NOTE | 2024-02-12 13:55 | XR_ITS ---
PROCEDURE INFORMATION: Exam: XR Chest Exam date and time: 02/12/2024 1:55 PM Age: 73 years old Clinical indication: Shortness of breath TECHNIQUE: Imaging protocol: Radiologic exam of the chest. Views: 2 views. COMPARISON: CT CHEST WO CON 01/16/2024 2:56 PM FINDINGS: Lungs: Unremarkable. No consolidation. Pleural spaces: Unremarkable. No pleural effusion. No pneumothorax. Heart/Mediastinum: Unremarkable. No cardiomegaly. Bones/joints: Unremarkable. IMPRESSION: No acute findings.
--- NOTE | 2024-02-12 14:05 | EXP.UTC ---
Discharge Plan Disposition Patient Disposition: Home, Self-Care Condition: Good Prescriptions Prescriptions: New azithromycin 250 mg tablet 250 mg PO DIRECTED Qty: 6 0RF Rx Instructions: Take two (2) tablets on day #1, then one (1) tablet day #2 thru #5 prednisone 20 mg tablet 20 mg PO BID Qty: 10 0RF No Action citalopram 20 mg tablet 20 mg PO DAILY amlodipine 10 mg tablet 10 mg PO DAILY Patient Comments: TAKE 1 TABLET BY MOUTH ONCE DAILY montelukast 10 mg tablet 10 mg PO DAILY Patient Comments: TAKE 1 TABLET BY MOUTH ONCE DAILY AT NIGHT hydrochlorothiazide 25 mg tablet 25 mg PO DAILY Patient Comments: TAKE 1 TABLET BY MOUTH ONCE DAILY losartan 100 mg tablet 100 mg PO DAILY Patient Comments: TAKE 1 TABLET BY MOUTH ONCE DAILY rosuvastatin 10 mg tablet 10 mg PO HS Patient Comments: TAKE 1 TABLET BY MOUTH ONCE DAILY AT NIGHT Referrals Follow up/Referrals: Provider,Referral, MD [Primary Care Provider] - See instructions Activity Restrictions/Add. Instructions Additional Instructions/Restrictions: Start antibiotic today. Be sure to complete entire prescription even if feeling better Tylenol and ibuprofen as needed for pain or fever Humidifier/vaporizer/hot steamy shower Follow-up with primary care tomorrow. Follow-up immediately in the ER of the [facility] for new or worsening symptoms or no noticeable improvement over the next 48-72 hours. Stop smoking Inhaler every 4-6 hours as needed. Should help open airways improved cough, wheezing, shortness of breath Start steroids today. Helps with inflammation therefore coughing and wheezing. Follow directions on package. Clinical Impressions Clinical Impression: Acute exacerbation of chronic obstructive pulmonary disease Instructions Patient Instructions: DI for Chronic Obstructive Pulmonary Disease Print Language Print Language: Polish Discharge ED Provider: [place] ([facility] HPI General Stated complaint: congestion, soa, fever, cough Mode of Arrival: Ambulatory Source of Information: Patient Limitations: No Limitations Time Seen by Provider: 02/12/24 13:55 Description of Symptoms (Recalled from Triage Doc. by RN): PATIENT C/O CONGESTION, COUGH, AND LOW OXYGEN HEENT Symptoms (Recalled from RN notes): Yes Resp Symptoms (Recalled from RN notes): Yes Skin Symptoms (Recalled from RN notes): No MS Symptoms (Recalled from RN notes): No Functional Status (Recalled from RN notes): WNL History of Present Illness Provider Complaint: 73-year-old female presents for low oxygen, coughing up yellow-green drainage, and congestion. Patient states she uses oxygen at home as needed but has noticed that her oxygen is running on the lower side. Patient states she has been sick for about 2 weeks and only had clear drainage but over the last couple days the drainage has turned dark yellow-green and her shortness of breath is increased. Related Data Home Medications ?Medication ?Instructions ?Recorded ?Confirmed amlodipine 10 mg tablet 10 mg PO DAILY 02/12/24 02/12/24 citalopram 20 mg tablet 20 mg PO DAILY 02/12/24 02/12/24 hydrochlorothiazide 25 mg tablet 25 mg PO DAILY 02/12/24 02/12/24 losartan 100 mg tablet 100 mg PO DAILY 02/12/24 02/12/24 montelukast 10 mg tablet 10 mg PO DAILY 02/12/24 02/12/24 rosuvastatin 10 mg tablet 10 mg PO HS 02/12/24 02/12/24 Previous Rx's ?Medication ?Instructions ?Recorded azithromycin 250 mg tablet 250 mg PO DIRECTED #6 tabs 02/12/24 prednisone 20 mg tablet 20 mg PO BID #10 tabs 02/12/24 Allergies Allergy/AdvReac Type Severity Reaction Status Date / Time codeine (CODEINE) Allergy Mild NA-NAUSEA/V Verified 01/30/23 19:42 OMITING hydrocodone (From LORTAB) Allergy Unknown NA-NAUSEA/V Verified 01/30/23 19:42 OMITING morphine (MORPHINE) AdvReac Intermediate SICK-VOMITI Verified 01/30/23 19:42 NG albuterol AdvReac Mild Anxiety Verified 01/30/23 19:42 Worker's Comp Is this a Worker's Comp case?: No [facility] Disclaimer: The information contained in this section may have been updated after the patient was seen, as this information can be updated by other users. 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 , [employer]) Liver disease UTI (urinary tract infection) Anxiety COPD (chronic obstructive pulmonary disease) Hypertension Surgical History , [employer]) History of cholecystectomy History of tubal ligation Social History , [employer]) Smoking Status: Former smoker tobacco type: cigarettes packs per day: 0 second hand exposure: No alcohol intake: never substance use type: denies use current occupational status: retired Travel in the last 8 weeks: None household members: spouse housing: house current occupational exposures/hazards: No caffeine: Yes ROS Obtained: Yes Systems reviewed as appropriate & no additional complaints except as documented Physical Exam General General appearance: alert and in no apparent distress ENT ENT exam: Present normal exam Respiratory Respiratory exam: Present wheezes Expanded Respiratory Exam Location: Left: wheezes and rhonchi, Right: wheezes and rhonchi and Lower: wheezes and rhonchi Cardiovascular Cardiovascular exam: Present regular rate and normal rhythm Neurological Exam Neurological exam: Present alert and oriented X3 Skin Skin exam: Present warm and intact Lymphatic Lymphatic Findings: no adenopathy Medical Decision Making Medical Records Medical records reviewed: Yes I reviewed the patient's medical records. Screening: Per USPSTF and CDC recommendations, given the prevalence of disease in our region, it is our hospital?s policy to screen for HIV and viral Hepatitis for all patients aged 18 and over and those with ongoing risk factors. [place] Inquiry Pt receiving controlled substance: No Vital Signs: 02/12/24 13:50 Temperature 98.6 F Temperature Source Oral Pulse Rate [Left Brachial] 85 Respiratory Rate 24 Blood Pressure [Left Arm] 163/110 H Blood Pressure Mean [Left Arm] 127 Blood Pressure Source [Left Arm] Automatic Cuff Blood Pressure Position [Left Arm] Sitting 02 Sat by Pulse Oximetry 89 L Oxygen Delivery Method Room Air Lab Data Lab results reviewed: Yes I reviewed the patient's lab results. Orders (Tests/Meds): ED MEDICATIONS Discontinued Medications Generic Name Dose Route Start Last Admin Trade Name Freq PRN Reason Stop Dose Admin Albuterol Sulfate 2.5 mg 02/12/24 13:56 Albuterol 0.083% 2.5 Mg/3 Ml Neb IH 02/12/24 13:57 ONCE ONE ORDERS Category Date Time Status CXR 2 view (NOT portable) [XR chest 2V] Stat Exams 02/12/24 13:55 Ordered Medical Decision Narrative: Patient's oxygen on the lower side of normal patient does not want to go to the ER for evaluation. Patient states she feels more comfortable at home. Patient states she has oxygen at home if needed and will return if needed. Discussed with patient risk and patient aware. Patient states she has taken a Z-Mike before with her other medicine.
[2024-02-12] MEDS: ALBUTEROL 0.083% 2.5 MG/3 ML NEB IH (14:11)
[2024-02-12 15:35] VITALS: BP 163/110; PULSE 85; RESP 24; TEMP 37; O2SAT 94
== END 2024-02-12 15:38 | disposition home or self-care (01) ==
PROVIDERS: Emergency Provider Nurse Practitioner Family
DX: J44.1 Chronic obstructive pulmonary disease with (acute) exacerbation (principal)
CPT/HCPCS: 71046; 94640; 99213; G0381; J7613

== ENCOUNTER 2025-01-25 14:07 | Emergency (ER) | payer MEDICARE, SELFPAY ==
--- NOTE | 2025-01-25 14:15 | XR_ITS ---
FINAL REPORT CLINICAL HISTORY: Rolled left ankle, lateral ankle pain COMPARISON: None FINDINGS: RIGHT ANKLE: 3 views of the right ankle were obtained. There is no acute fracture or dislocation. The joint spaces are intact. There is diffuse soft tissue swelling about the ankle. IMPRESSION: Diffuse soft tissue swelling, with no acute fracture. Reviewed, Interpreted and Dictated by Ras Hughes MD Transcribed by Dayna Carl Authenticated and . [facility]
--- NOTE | 2025-01-25 14:15 | XR_ITS ---
FINAL REPORT TECHNIQUE: 3 views left knee CLINICAL HISTORY: Fall, medial left knee pain COMPARISON: None FINDINGS: LEFT KNEE 3 views of the left knee were obtained. There is no acute fracture or dislocation. The joint spaces are intact. Note is made of moderate chondrocalcinosis. There is no soft tissue abnormality. IMPRESSION: Moderate changes of chondrocalcinosis, with no acute fracture. Reviewed, Interpreted and Dictated by Ras Hughes MD Transcribed by Dayna Carl Authenticated and [facility]
--- NOTE | 2025-01-25 14:16 | HMH.EDGENADL ---
Discharge Plan Disposition Patient Disposition: Home, Self-Care Prescriptions Prescriptions: No Action citalopram 20 mg tablet 20 mg PO DAILY amlodipine 10 mg tablet 10 mg PO DAILY Patient Comments: TAKE 1 TABLET BY MOUTH ONCE DAILY montelukast 10 mg tablet 10 mg PO DAILY Patient Comments: TAKE 1 TABLET BY MOUTH ONCE DAILY AT NIGHT hydrochlorothiazide 25 mg tablet 25 mg PO DAILY Patient Comments: TAKE 1 TABLET BY MOUTH ONCE DAILY losartan 100 mg tablet 100 mg PO DAILY Patient Comments: TAKE 1 TABLET BY MOUTH ONCE DAILY rosuvastatin 10 mg tablet 10 mg PO HS Patient Comments: TAKE 1 TABLET BY MOUTH ONCE DAILY AT NIGHT azithromycin 250 mg tablet 250 mg PO DIRECTED Qty: 6 0RF Rx Instructions: Take two (2) tablets on day #1, then one (1) tablet day #2 thru #5 prednisone 20 mg tablet 20 mg PO BID Qty: 10 0RF Referrals Follow up/Referrals: Edy Chaves DO [Staff Physician, Orthopedics] - See instructions Omayra Chadwick MD [Primary Care Provider, Family Practice] - See instructions Activity Restrictions/Add. Instructions Additional Instructions/Restrictions: Your x-rays did not show any evidence of fracture or broken bones. You likely have an ankle sprain. You are being referred to Dr. Chaves with orthopedic surgery team for follow-up. I encourage you to remain in the walking boot until your follow-up appointment. You can take Tylenol and ibuprofen to help with pain. Use ice or heat on the area to help with symptoms. Elevate the leg when resting to help reduce swelling. If you develop any new or worsening symptoms, or if you become concerned for your health for any reason, return to the emergency department for evaluation. Clinical Impressions Clinical Impression: Left ankle sprain Print Language Print Language: Malay Discharge ED Provider: Morgan Sanchez General Adult HPI General Chief complaint: PAIN Stated complaint: AO- 01/24/25- pain and swelling, L ankle Time Seen by Provider: 01/25/25 14:10 History of Present Illness HPI narrative: Gina Clancy is a 74y female with a history of COPD, hypertension who presents to the emergency department for complaints of a left ankle injury. Patient states that yesterday, she was sitting down and her left foot fell asleep and when she tried to get up, it caused her to fall. She did not hit her head or lose consciousness. She states that she may have rolled her left ankle. She has been able to bear weight on it but the lateral aspect of the ankle has been swollen and painful. She also complains of pain rating from the ankle up to the medial milian/knee. She took Tylenol yesterday without significant relief. Related Data Home Medications ?Medication ?Instructions ?Recorded ?Confirmed amlodipine 10 mg tablet 10 mg PO DAILY 02/12/24 02/12/24 citalopram 20 mg tablet 20 mg PO DAILY 02/12/24 02/12/24 hydrochlorothiazide 25 mg tablet 25 mg PO DAILY 02/12/24 02/12/24 losartan 100 mg tablet 100 mg PO DAILY 02/12/24 02/12/24 montelukast 10 mg tablet 10 mg PO DAILY 02/12/24 02/12/24 rosuvastatin 10 mg tablet 10 mg PO HS 02/12/24 02/12/24 Previous Rx's ?Medication ?Instructions ?Recorded azithromycin 250 mg tablet 250 mg PO DIRECTED #6 tabs 02/12/24 prednisone 20 mg tablet 20 mg PO BID #10 tabs 02/12/24 Allergies Allergy/AdvReac Type Severity Reaction Status Date / Time codeine (CODEINE) Allergy Mild NA-NAUSEA/V Verified 01/30/23 19:42 OMITING hydrocodone (From LORTAB) Allergy Unknown NA-NAUSEA/V Verified 01/30/23 19:42 OMITING morphine (MORPHINE) AdvReac Intermediate SICK-VOMITI Verified 01/30/23 19:42 NG albuterol AdvReac Mild Anxiety Verified 01/30/23 19:42 [facility] Disclaimer: The information contained in this section may have been updated after the patient was seen, as this information can be updated by other users. 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) Smoking Status: Former smoker tobacco type: cigarettes packs per day: 0 second hand exposure: No alcohol intake: never substance use type: denies use current occupational status: retired Travel in the last 8 weeks?: None household members: spouse housing: house current occupational exposures/hazards: No caffeine: Yes Have you lived/traveled outside US in past 30 days?: No Contact w/someone who lives/traveled outside US past 30 days?: No Exposure to someone with infectious disease in past 14 days?: No Do you have a fever (greater than 100.4 F or 38 C)?: No Have you tested positive for COVID-19?: No Exposed to someone with COVID-19 in past 14 days?: No Do you have a sore throat?: No Do you have a cough?: No Do you have any weakness?: No Do you have any diarrhea?: No Are you experiencing any unusual bleeding?: No Do you have any muscle aches/pain?: No Do you have any abdominal pain?: No Are you experiencing loss of taste or smell?: No Other 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 Have you received the Flu Vaccine for this season: Yes Have you received the Pneumonia Vaccine: Yes ROS Obtained: Yes Systems reviewed as appropriate & no additional complaints except as documented Physical Exam General General appearance: alert and in no apparent distress Head Head exam: atraumatic Eye Eye exam: Present normal appearance ENT ENT exam: Present normal external ear exam Neck Neck exam: Present full ROM Chest Chest inspection: Present symmetric chest wall rise Respiratory Respiratory exam: Present normal lung sounds bilaterally; Absent respiratory distress Cardiovascular Cardiovascular exam: Present regular rate and normal rhythm Abdominal Exam Abdominal exam: Present soft; Absent tenderness or guarding Extremities Exam Extremities exam: Present normal inspection Expanded Lower Extremity Exam Left: Leg image:  1. Mild tenderness without deformity or swelling. Ankle image:  1. swelling, tenderness. No deformity or erythema. 2+ DP and PT pulses. 5 out of 5 strength with dorsiflexion and plantarflexion of the foot. Sensation grossly intact. Less than twos and capillary refill. Back Exam Back exam: Present normal inspection Neurological Exam Neurological exam: Present alert and oriented X3 Psychiatric Psychiatric exam: Present normal affect Skin Skin exam: Present warm and dry Medical Decision Making Medical Records Screening: Per USPSTF and CDC recommendations, given the prevalence of disease in our region, it is our hospital?s policy to screen for HIV and viral Hepatitis for all patients aged 18 and over and those with ongoing risk factors. [place] Inquiry Pt receiving controlled substance: No Vital Signs: 01/25/25 14:18 01/25/25 14:18 01/25/25 14:30 Temperature 98.8 F Temperature Source Oral Pulse Rate 70 62 Pulse Rate [Left Radial] 75 Respiratory Rate 19 Blood Pressure 134/65 129/59 L Blood Pressure [Right Arm] 166/81 H Blood Pressure Mean [Right Arm] 109 02 Sat by Pulse Oximetry 94 L 93 L 92 L Oxygen Delivery Method Room Air Room Air Room Air 01/25/25 14:45 Temperature Temperature Source Pulse Rate 55 L Pulse Rate [Left Radial] Respiratory Rate Blood Pressure 134/59 L Blood Pressure [Right Arm] Blood Pressure Mean [Right Arm] 02 Sat by Pulse Oximetry 93 L Oxygen Delivery Method Orders (Tests/Meds): ORDERS Category Date Time Status Ankle XR - Left 2 Views [XR ankle LT 2V] Stat Exams 01/25/25 14:15 Completed Knee XR left 2 views [XR knee LT 2V] Stat Exams 01/25/25 14:15 Completed Medical Decision Narrative: Gina Clancy is a 74y female with a history of COPD, hypertension who presents to the emergency department for complaints of a left ankle injury. Patient states that yesterday, she was sitting down and her left foot fell asleep and when she tried to get up, it caused her to fall. She did not hit her head or lose consciousness. She states that she may have rolled her left ankle. She has been able to bear weight on it but the lateral aspect of the ankle has been swollen and painful. She also complains of pain rating from the ankle up to the medial milian/knee. She took Tylenol yesterday without significant relief. or malalignment. But denies any hoarse voice on arrival, patient is hemodynamically stable, in no acute distress, breathing comfortably on room air. Physical exam, stated above, revealed overall well-appearing female in no distress. She has swelling to the lateral aspect of her left ankle and some tenderness over the lateral malleolus. Full strength and range of motion with dorsi and plantarflexion of the ankle. Sensation grossly intact to the foot. 2+ DP and PT pulses. Mild tenderness over the medial aspect of the right proximal tibia without deformity or swelling. No swelling in the knee. No tenderness or deformity in the milian. Differential diagnosis includes, but is not limited to: Ankle sprain, ankle fracture, Maisonneuve fracture, among others. Low concern for neurovascular injury given patient's reassuring exam. Will obtain ankle x-rays to evaluate the ankle and left knee x-rays to evaluate for proximal fractures. X-ray imaging was interpreted by me personally. No acute fracture or malalignment of the ankle or knee or proximal tibia. Final radiology report pending. On reassessment, patient remains in stable condition. I do feel the patient has likely sprained her ankle and would benefit from walking boot and orthopedic follow-up. Recommend Tylenol, ibuprofen as well as rest, ice and heat. Return precautions were given. All questions were answered. She demonstrated understanding and was in agreement this plan. She was then discharged from the emergency department in stable condition. Critical Care Critical Care Time Critical Care Time: No
--- OUTSIDE RECORDS SUMMARY | 2025-01-25 14:16 | XMS_ITS | Encounter Summary ---
Author Organization Healthcare Address [address] [place] [address] Care Team Providers Care Meal Miller Name Role Phone Omayra Chadwick MD Primary Care Provider [phone] Annalise Alejo DIRECTOR SALES TRAINING Unavailable Unavailab Concepcion Mishra DIRECTOR SALES TRAINING Unavailable Unavailabl e Encounter Details Date Type Department Care Team (Late st Contact Info) Description 02/06/2021 Outside Procedure External Location [address] [place] [address] Omayra Chadwick MD [address] [place] [id number] Social History Tobacco Use Types Packs/Day Years Used Date Smoking Tobacco: Former Cigarettes 1.5 30 Smokeless Tobacco: Never PHQ-2 Answer Date Recorded Patient Health Questionnaire-2 Score 0 12/31/2020 Comments Unknown Sex and Gender Information Value Date Recorded Sex Assigned at Not on file Legal Sex Female 8:44 PM EDT Gender Identity Not on file Sexual Orientation Not on file COVID-19 Exposure Response Date Recorded In the last month, have you been in contact with someone who was confirmed or suspected to have Coronavirus / COVID-19? Unable to assess 01/22/2021 12:53 PM ES T documented as of this encounter Plan of Treatment Not on file documented as of this encounter Procedures Procedure Name Priority Date/Time Associated Diagnosis Comments ECHO, ADULT TRANSTHORACIC COMPLETE W/ COLOR AND DOPPLER 02/06/2021 12:23 PM EST documented in this encounter Results * Echo, Adult Transthoracic Complete w/ Color and Doppler (02/06/2021 12:23 PM EST) Anatomical Region Laterality Modality Ultrasound 02/06/2021 12:2 3 PM EST Narrative 02/10/2021 1:42 PM EST [address] [address] Name: MICHELE CLANCY Exam Date: 02/06/2021 : 1950 Age 70 Gender: F Physician: OMAYRA SPENCER Facility: [facility] Facility HSV: Outpatient Exam: ECHO W SPEC COLOR FLOW Reason for Study: shortness of breath SUMMARY Normal LV size with normal function. The ejection fraction is 65-70%. Normal diastolic function. INTERPRETATION DETAIL Fair quality study. Left ventricle: The left ventricle is normal in size with normal systolic function. The ejection fraction is 65-70%. There is normal LV wall thickness. The left ventricular wall motion is normal. Mitral filling indicates Normal diastolic function. Left atrium: The left atrium is normal. LA volume: 36.5mL, LA volume index: 20.5mL/mA . Right ventricle: The right ventricle is normal in size with normal function. Right atrium: The right atrium is normal. Mitral valve: The mitral valve is normal. There is no mitral stenosis. There is no mitral regurgitation. Aortic valve: There is no aortic stenosis. AV peak dtvkwbqq=091cg/sec. There is trace aortic regurgitation. Tricuspid valve: The tricuspid valve is normal. There is trace tricuspid regurgitation. Pulmonic valve: The pulmonic valve is normal. Pericardium: The pericardium has an echocardiographic clear space consistent with pericardial fat. Interatrial septum: The interatrial septum is normal. Aorta: The aortic root is normal. Aortic dimension - Ao M-mode= 2.60cm. Vena Cava: The inferior vena cava is normal. MEASUREMENTS Left Ventricle IVSd: 0.90cm (0.6-1.1cm) PWd: 0.93cm (0.6-1.1cm) Mass Kathi: 129g LVMI: 72g/mA (>50-95g/m) LVIDd: 4.37cm (3.7-5.6 cm) LVIDdI: 2.46cm/m2 LVIDs: 2.46cm (1.8-4.2 cm) LVIDsI: 1.38cm/m2 RWT: 0.43 ( E to A: 0.50 (0.6-2) E-e prime med: 6.63 E-e prime lat: 7.57 Decel: 404.00ms (168-232ms) Right Ventricle Mid RV Kat: 3.5cm (2.7-3.3cm) Max Valve Velocities AV peak shauna: 151cm/sec LVOT: 124.00cm/sec Atria LA AP: 3.6cm Legally authenticated by HEENA Barcenas 2021-02-10 13:31:37 LA vol: 36.5mL SVETLANA: 20.5mL/mA (16-28ml/m2) Mychal Norman MD Dictated By: MYCHAL NORMAN Transcribed By: Transcribed On: 02/10/2021 1:31 PM Electronically signed by: MYCHAL NORMAN 02/10/2021 Thank you for referring MICHELE CLANCY to [facility]. Legally authenticated by HEENA Barcenas 2021-02-10 13:31:37 Procedure Note Provider, [facility] - 02/10/2021 [place] [address] Name: MICHELE CLANCY Exam Date: 02/06/2021 : 1950 Age 70 Gender: F Physician: OMAYRA SPENCER Facility: [facility] Facility HSV: Outpatient Exam: ECHO W SPEC COLOR FLOW Reason for Study: shortness of breath SUMMARY Normal LV size with normal function. The ejection fraction is 65-70%. Normal diastolic function. INTERPRETATION DETAIL Fair quality study. Left ventricle: The left ventricle is normal in size with normal systolic function. The ejection fraction is 65-70%. There is normal LV wall thickness. The left ventricular wall motion is normal. Mitral filling indicates Normal diastolic function. Left atrium: The left atrium is normal. LA volume: 36.5mL, LA volume index: 20.5mL/mA . Right ventricle: The right ventricle is normal in size with normal function. Right atrium: The right atrium is normal. Mitral valve: The mitral valve is normal. There is no mitral stenosis. There is no mitral regurgitation. Aortic valve: There is no aortic stenosis. AV peak ixomhgef=427bf/sec. There is trace aortic regurgitation. Tricuspid valve: The tricuspid valve is normal. There is trace tricuspid regurgitation. Pulmonic valve: The pulmonic valve is normal. Pericardium: The pericardium has an echocardiographic clear space consistent with pericardial fat. Interatrial septum: The interatrial septum is normal. Aorta: The aortic root is normal. Aortic dimension - Ao M-mode= 2.60cm. Vena Cava: The inferior vena cava is normal. MEASUREMENTS Left Ventricle IVSd: 0.90cm (0.6-1.1cm) PWd: 0.93cm (0.6-1.1cm) Mass Kathi: 129g LVMI: 72g/mA (>50-95g/m) LVIDd: 4.37cm (3.7-5.6 cm) LVIDdI: 2.46cm/m2 LVIDs: 2.46cm (1.8-4.2 cm) LVIDsI: 1.38cm/m2 RWT: 0.43 ( E to A: 0.50 (0.6-2) E-e prime med: 6.63 E-e prime lat: 7.57 Decel: 404.00ms (168-232ms) Right Ventricle Mid RV Kat: 3.5cm (2.7-3.3cm) Max Valve Velocities AV peak shauna: 151cm/sec LVOT: 124.00cm/sec Atria LA AP: 3.6cm Legally authenticated by HEENA Barcenas 2021-02-10 13:31:37 LA vol: 36.5mL SVETLANA: 20.5mL/mA (16-28ml/m2) Mychal Norman MD Dictated By: MYCHAL NORMAN Transcribed By: Transcribed On: 02/10/2021 1:31 PM Electronically signed by: MYCHAL NORMAN 02/10/2021 Thank you for referring KAREEN MICHELE to [facility]. Legally authenticated by HEENA Barcenas 2021-02-10 13:31:37 us Omayra Chadwick MD CV ECHO PROCEDURES Final Resul t documented in this encounter Visit Diagnoses Not on filedocumented in this encounter Care Teams Meal Miller Relationship Specialty Start Date End Date Omayra Chadwick MD [address] [place] [address] PCP - General 07/18/20 Annalise Alejo LPN VALUE-BASED TRANSFORMATION PROGRAM None Licensed Practical Nurse 12/08/22 3 Concepcion Horner LPN VALUE-[place] [address] None Licensed Practical Nurse 09/01/23 09/30/23 documented as of this encounter
--- OUTSIDE RECORDS SUMMARY | 2025-01-25 14:16 | XMS_ITS | Encounter Summary ---
Author Organization Healthcare Address [address] [place] [address] Care Team Providers Care Truck Spotter Name Role Phone Omayra Chadwick MD Primary Care Provider [phone] Annalise Alejo ACADEMIC PHYSICIAN Unavailable Unavailab Concepcion Mishra ACADEMIC PHYSICIAN Unavailable Unavailabl e Encounter Details Date Type Department Care Team (Late st Contact Info) Description 12/31/2020 Outside Procedure External Location [address] [place] [address] Provider, Jamie Marcella Social History Tobacco Use Types Packs/Day Years [...] have Coronavirus / COVID-19? Unable to assess 12/31/2020 12:18 PM ED T documented as of this encounter Functional Status * Over the past 2 weeks, how often have you been bothered by any of the following problems? Question Answer Date of Assessment Author Little interest or pleasure in doing things Not at all 12/31/2020 12:24 PM EDT Kandi Iisdro Feeling down, depressed, or hopeless Not at all 12/31/2020 12:24 PM EDT Kandi Isidro Patient Health Questionnaire -2 Score 0 12/31/2020 12:24 PM EDT Kandi Isidro * Calculated C-SSRS Risk Score (Lifetime/Recent) Answer Date of Assessment Author No Risk Indicated 12/31/2020 12:24 PM EDT Clara Isidro hasdanna R * Question Answer Date of Assessment Author 1. Wish to be (Past 1 Month) No 021 12:24 PM EDT Kandi Isidro R 2. Non-Specific Active Suici janet Thoughts (Past 1 Month) No 12/31/2020 12:24 PM EDT Kandi Isidro R 6. Suicidal Behavior (Lifetime) No 12:24 PM EDT Kandi Isidro R documented as of this encounter Plan of Treatment Not on file documented as of this encounter Procedures Procedure Name Priority Date/Time Associated Diagnosis Comments CT ANGIO CHEST 12/31/2020 1:40 PM EDT documented in this encounter Results * CT Angio Chest (12/31/2020 1:40 PM EDT) Anatomical Region Laterality Modality Chest Computed Tomogra phy 12/31/2020 1:40 PM EDT [facility] Provider IMG CT PROCEDURES Fi nal Result documented in this encounter Visit Diagnoses Not on filedocumented in this encounter Care Teams Truck Spotter Relationship Specialty Start Date End Date Omayra Chadwick MD [address] [place] [phone] PCP - General 07/18/20 Annalise Alejo LPN VALUE-BASED TRANSFORMATION PROGRAM None Licensed Practical Nurse 12/08/22 3 Concepcion Horner LPN VALUE-BASED [place] [address] None Licensed Practical Nurse 09/01/23 09/30/23 documented as of this encounter
--- OUTSIDE RECORDS SUMMARY | 2025-01-25 14:16 | XMS_ITS | Clinical Summary ---
Author Organization Healthcare Address [address] [place] [address] Care Team Providers Care Electric Spot Welder Name Role Phone Omayra Chadwick MD Primary Care Provider [phone] Allergies Active Allergy Reactions Criticality Noted Date Comments Acetaminophen Nausea Low 10/30/2021 Codeine Nausea Medium 12/19/2009 Hydrocodone Nausea Low 10/30/2021 Hydrocodone-Acetaminophen Nausea Medium 12/19/2009 Morphine Nausea Medium 12/19/2009 Needs a premed first, then able to take. Medications cholecalciferol (Vitamin D-3) 25 MCG (1000 UT) capsule 50 mcg (2000IU) once daily 06/20/19 21 Active tiZANidine (Zanaflex) 2 MG tabletIndications: Sacroiliac joint disease,Back spasm,Left-sided face pain Take 1 tablet (2 mg) by mouth every 8 (eight) hours if needed for muscle spasms. 30 tablet 5 10/29/19 23 Active Multiple Vitamins-Minerals ([employer] W[employer]ENS DAILY GUMMIES PO) Take by mouth. Act marisol dextromethorphan-g uaiFENesin (Mucinex DM) 30-600 MG 12 hr tablet Take 1 tablet by mouth 2 (two) times a day as needed for cough. Do not crush, chew, or split. Active Stiolto Respimat 2.5-2.5 MCG/ACT aerosol solution inhalerIndications :Chronic bronchitis, unspecified chronic bronchitis type (CMS/HCC) Inhale 2 Inhalations daily. 5 g 3 05/16/19 25 Active Fluticasone-Umecli din-Vilant (Trelegy Ellipta) 100-62.5-25 MCG/ACT aerosol powderIndications: COPD, severe (CMS/HCC) Inhale 1 puff daily. 60 each 11 05/16/19 25 Active rosuvastatin (Crestor) 10 MG tabletIndications: Other hyperlipidemia TAKE 1 TABLET BY MOUTH ONCE DAILY AT NIGHT 90 tablet 1 12/12/19 25 Active amLODIPine (Norvasc) 10 MG tabletIndications: Primary hypertension Take 1 tablet by mouth once daily 90 tablet 1 12/12/19 25 Active citalopram (CeleXA) 20 MG tabletIndications: Anxiety Take 1 tablet by mouth daily. as directed 90 tablet 3 12/16/19 25 Active albuterol 108 (90 Base) MCG/ACT inhalerIndications :COPD with exacerbation (CMS/HCC) Inhale 2 puffs every 6 hours as needed for wheezing. 18 g 4 12/15/19 25 Active albuterol (Proventil) (2.5 MG/3ML) 0.083% nebulizer solutionIndication s:Chronic bronchitis, unspecified chronic bronchitis type (CMS/HCC),Hypoxia Take 3 mL by nebulization every 6 hours as needed for wheezing. 75 mL 4 12/15/19 25 Active fluticasone-salmet maame (Advair Diskus) 250-50 MCG/ACT diskus inhalerIndications :Chronic bronchitis, unspecified chronic bronchitis type (CMS/HCC) Inhale 1 puff 2 times a day. Rinse mouth with water after use to reduce aftertaste and incidence of candidiasis. Do not swallow. 60 each 11 12/16/19 25 026 Active hydroCHLOROthiazid e (HYDRODiuril) 25 MG tabletIndications: Primary hypertension Take 1 tablet by mouth daily. 90 tablet 1 12/15/19 25 Active losartan (Cozaar) 100 MG tabletIndications: Primary hypertension Take 1 tablet by mouth daily. 90 tablet 1 12/15/19 25 Active montelukast (Singulair) 10 MG tabletIndications: Chronic bronchitis, unspecified chronic bronchitis type (CMS/HCC) Take 1 tablet by mouth nightly. 90 tablet 1 12/15/19 25 Active Active Problems Problem Noted Date Diagnosed Date Dependence on continuous supplemental oxygen 01/2025 Hypoxia 12/31/2020 High glucose level 05/30/2020 COPD, severe 05/29/2020 Tobacco abuse 05/29/2020 Sacroiliac joint disease 05/01/2019 Colon cancer screening 04/24/2019 Anxiety 03/13/2019 Colon polyps 03/13/2019 HTN (hypertension) 03/13/2019 Resolved Problems Problem Noted Date Diagnosed Date Resolved Date Shortness of breath 01/28/2021 06/25/19 23 Cough 12/31/2020 06/24/2022 Fever, unspecified 12/31/2020 3 COPD with exacerbation 12/31/202001/22 Encounters Date Type Department Care Team Description 12/11/2024 Refill [facility] [address] [place] [address] Omayra Chadwick MD Anxiety; COPD with exacerbation (CMS/HCC); Chronic bronchitis, unspecified chronic bronchitis type (CMS/HCC); Hypoxia; Primary hypertension; Sacroiliac joint disease; Back spasm; Left-sided face pain 12/07/2024 Refill [facility] [address] [place] [address] Omayra Chadwick MD Other hyperlipidemia; Primary hypertension from Last 3 Months Immunizations Immunization Administration Dates Next Due Influenza, High-dose, Split Virus, Trivalent, Injectable, preservative free 12/14/2023,12/28/2018,11/07/2015 Influenza, Unspecified 12/25/2009 Influenza, high-dose, quadrivalent 11/10,12/22/2021,12/09/2020,2019,12/28/2018,12/28/2018,11/07/2015,0 11/07/2015 Influenza, trivalent, adjuvanted 12/21/2016 Moderna COVID-19 Vaccine (Re d Cap) 12+ years 03/20/2021,08/30/2020,08/02/2020 Pneumococcal 20-iglesia Conj Vaccine 07/26/2022 Pneumococcal, Unspecified 12/25/2009 Rsv, Bivalent, Protein Subun it Rsvpref, Diluent Reconstituted, 0.5mL, PF 01/13/2023 Tdap 07/26/2022 Zoster, Recombinant 11/10/2022,08/31/2022 Zoster, live 12/21/2016,12/21/2016 Family History 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 Relation Name Comments Lung cancer Father FH: lung cancer Colon cancer Sister 1 FH: colon cance r Colon cancer Sister 2 FH: colon cance r Relation Name Status Comments Father Sister 1 Sister 2 Social History Tobacco Use Types Packs/Day Years Used Date Smoking Tobacco: Former Cigarettes 1.5 30 1 2009 Smokeless Tobacco: Never Tobacco Cessation:Counseling Given: Yes Humiliation, Afraid, Rape, and Kick questionnair e Answer Date Recorded Within the last year, have y ou been afraid of your partner or ex-partner? No 05/15/2024 Within the last year, have y ou been humiliated or emotionally abused in other ways by your partner or ex-partner? No Within the last year, have y ou been kicked, hit, slapped, or otherwise physically hurt by your partner or ex-partner? No 05/15/2024 Within the last year, have y ou been raped or forced to have any kind of sexual activity by your partner or ex-partner? No 05/15/2024 AUDIT-C Answer Date Recorded Q1: How often do you have a drink containing alcohol? Never 09/06/2023 Q2: How many drinks containi ng alcohol do you have on a typical day when you are drinking? Patient does not drink Q3: How often do you have si x or more drinks on one occasion? Never 09/06/2023 PHQ-2 Answer Date Recorded Patient Health Questionnaire-2 Score 0 05/15/2024 [facility] - Occupational Stress Questionnaire Answer Date Recorded Do you feel stress - tense, restless, nervous, or anxious, or unable to sleep at night because your mind is troubled all the time - these days? Not at all 09/06/2023 Exercise Vital Sign Answer Date Recorde d On average, how many days pe r week do you engage in moderate to strenuous exercise (like a brisk walk)? 0 days 09/06/2023 On average, how many minutes do you engage in exercise at this level? 0 min 09/06/2023 Hunger Vital Sign Answer Date Recorded Within the past 12 months, y ou worried that your food would run out before you got the money to buy more. Never true 05/16/19 25 Within the past 12 months, t he food you bought just didn't last and you didn't have money to get more. Never true 05/15/2024 PRAPARE - Transportation Answer Date Re corded In the past 12 months, has l ack of transportation kept you from medical appointments or from getting medications? No 05/05 In the past 12 months, has l ack of transportation kept you from meetings, work, or from getting things needed for daily living? No 05/15/2024 Housing Stability Vital Sign Answer Kulwinder e Recorded In the last 12 months, was t here a time when you were not able to pay the mortgage or rent on time? No 09/06/2023 In the last 12 months, how many places have you lived? 1 09/06/2023 In the last 12 months, was t here a time when you did not have a steady place to sleep or slept in a long-term (including now)? No 09/06/2023 PHQ-9 Answer Date Recorded Patient Health Questionnaire-9 Score 0 05/15/2024 Housing Stability Vital Sign Answer Kulwinder e Recorded In the last 12 months, was t here a time when you were not able to pay the mortgage or rent on time? No 05/15/2024 Number of Times Moved in the Last Year Not on fi le 05/15/2024 At any time in the past 12 m [facility], were you homeless or living in a long-term (including now)? No 05/15/2024 Utilities Answer Date Recorded In the past 12 months has th e electric, gas, oil, or water company threatened to shut off services in your home? No 09/06/2023 PHQ-2A Answer Date Recorded Patient Health Questionnaire-2 Score 0 12/13/2022 Comments Unknown Sex and Gender Information Value Date Recorded Sex Assigned at Not on file Legal Sex Female 8:44 PM EDT Gender Identity Not on file Sexual Orientation Not on file Last Filed Vital Signs Vital Sign Reading Time Taken Comments Blood Pressure 140/76 05/15/2024 1:48 PM EDT Pulse 66 05/15/2024 1:39 PM EDT Temperature 36.7 C (98 F) 05/15/2024 1:39 PM EDT Respiratory Rate 16 05/15/2024 1:39 PM EDT Oxygen Saturation 85% 05/15/2024 1:3 9 PM EDT 2 L if needed during the day and 2L at night Inhaled Oxygen Concentration - - Weight 78.5 kg (173 lb 1 oz) 05/15/2024 1:39 PM EDT Height 157.5 cm (5' 2 ) 05/15/2024 1:39 PM EDT Body Mass Index 31.65 05/15/2024 1:39 PM EDT Plan of Treatment Health Maintenance Due Date Last Done Comments [facility]-Bone Density Scan 1950 [facility]-Hepatitis C Screening 1950 [facility]-/Child/Adol SDOH Screenings 1950 [facility]- SDOH Screenings 1966 [facility]-Adult SDOH Screenings 1968 [id number] Vaccine ( season) 2024 03/20/2021, 08/30/2020, 08/02/2020 [facility]-Influenza Vaccine (#1) 11/05/202412/13, 11/10/2022, 12/22/2021, Additional history exists [facility]-Medicare Annual Wellness (AWV) 11/07/2024 11/08/2023 [facility]-Depression Screening 05/15/2025 05/15/2024, 05/05 [facility]-DTaP,Tdap,and Td Vaccines (2 - Td or Tdap) 07/26/2032 07/26/2022 Colonoscopy Discontinued 04/02/2019 [facility]-Colorectal Cancer Screening Discontinued [facility]-Lung Cancer Screening Discontinued 12/31/2020 [facility]-Pneumococcal Vaccine: 50+ Years Completed 07/26/2022, 12/25/2009 [facility]-Zoster Vaccines Completed 11/10/2022, 08/31/2022, 12/21/2016, Additional history exists [facility]-RSV Vaccine: 60+ Years or Completed 01/13/2023 [facility]-Diabetes: Hemoglobin A1C Discontinued 11/08/2023, 07/28/2022, 05/29/2020, Additional history exists [facility]-Breast Cancer Screening Discontinued 11/06, 07/28/2022, 07/09/2020 [facility]-Obesity Intervention Completed 025, 11/08/2023, 11/08/2023, Additional history exists CT Colonography Discontinued FIT-DNA Discontinued FIT Discontinued FOBT Discontinued HPV Vaccines Aged Out No longer eligi ble based on patient's age to complete this topic Sigmoidoscopy Discontinued [facility]-HIB Vaccines Aged Out No longer e ligible based on patient's age to complete this topic [facility]-Hepatitis A Vaccines Aged Out No longer eligible based on patient's age to complete this topic [facility]-IPV Vaccines Aged Out No longer e ligible based on patient's age to complete this topic [facility]-Rotavirus Vaccines Aged Out No lo nger eligible based on patient's age to complete this topic Procedures Procedure Name Priority Date/Time Associated Diagnosis Comments MAMMOGRAPHY EXTERNAL RESULTS 11/29/2023 HEMOGLOBIN A1C Routine 11/08/2023 2:34 PM EDT Routine general medical examination at [facility] CT ANGIO CHEST 12/31/2020 1:40 PM EDT COLONOSCOPY EXTERNAL RESULT 04/02/2019 from Last 3 Months or Most Recently Relevant to Health Maintenance Results * Mammography External Results (11/29/2023) Anatomical Region Laterality Modality Mammography Narrative 11/29/2023 Ordered by an unspecified provider. us External Provider IMG BI PROCEDURES Final Result * Hemoglobin A1c (11/08/2023 2:34 PM EDT) Hemoglobin A1c 5.5 <5.7 % 11/08/2023 7:27 PM EDT [facility] Blood Venous blood specimen / Unknown Venipuncture / Unknown 11/08/2023 2:34 PM EDT 11/08/2023 2:34 PM EDT Narrative [facility] - 11/08/2023 7:27 PM EDT HA1C Interpretive Data: Diagnosis of Diabetes: Diabetic > or = 6.5% Pre-diabetic 5.7 to 6.4% Non-diabetic < or = 5.6% Glycemic Targets for Type I and Type II Diabetics: Non- Adults <7.0% Adults <6.0% Children and Adolescents <7.5% Source: [place] [employer]. Standards of medical care in diabetes,2017. Diabetes Care.2017:40 (suppl 1):S1-S135. HbA1c assay performed by an ion-exchange chromatography method that is certified traceable to the DCCT. us Omayra Chadwick MD LAB BLOOD ORDERABLES Final Res ult [facility] [address] [place] [address] * CT Angio Chest (12/31/2020 1:40 PM EDT) Anatomical Region Laterality Modality Chest Computed Tomogra phy 12/31/2020 1:40 PM EDT us Generic [place] Provider IMG CT PROCEDURES Fi nal Result * COLONOSCOPY EXTERNAL RESULT (04/02/2019) Anatomical Region Laterality Modality Endoscopy Narrative 04/02/2019 Ordered by an unspecified provider. us External Provider GI PROCEDURE ORDERABLES Final Result from Last 3 Months or Most Recently Relevant to Health Maintenance Insurance [employer] Care Teams Electric Spot Welder Relationship Specialty Start Date End Date Omayra Chadwick MD [address] [place] [address] PCP - General 07/18/20
--- OUTSIDE RECORDS SUMMARY | 2025-01-25 14:16 | XMS_ITS | Encounter Summary ---
Author Organization Healthcare Address [address] [place] [address] Care Team Providers Care Supervisor Melt House Name Role Phone Omayra Chadwick MD Primary Care Provider [phone] Reason for Visit * Reason Onset Date Comments Med Refill 12/11/2024 Encounter Details Date Type Department Care Team (Late st Contact Info) Description 12/11/2024 Refill [facility] [address] [place] [address] Omayra Chadwick MD [address] [place] [address] Anxiety; COPD with exacerbation (CMS/HCC); Chronic bronchitis, unspecified chronic bronchitis type (CMS/HCC); Hypoxia; Primary hypertension; Sacroiliac joint disease; Back spasm; Left-sided face pain Social History Tobacco Use Types Packs/Day Years Used Date Smoking Tobacco: Former Cigarettes 1.5 30 1 - 2009 Smokeless Tobacco: Never Humiliation, Afraid, Rape, and Kick questionnair e [...] Recorded Patient Health Questionnaire-2 Score 0 05/15/2024 [facility] - Occupational Stress Questionnaire Answer Date Recorded [...] place to sleep or slept in a skilled nursing (including now)? No 09/06/2023 PHQ-9 Answer Date [...] any time in the past 12 m [facility], were you homeless or living in a skilled nursing (including now)? No 05/15/2024 Utilities Answer Date [...] on file Sexual Orientation Not on file documented as of this encounter Miscellaneous Notes * Telephone Encounter - Kiya Forde, PharmD - 12/14/2024 10:23 AM EDT 5 medication(s) has been approved per protocol. documented in this encounter Plan of Treatment Not on file documented as of this encounter Visit Diagnoses Diagnosis Anxiety Anxiety state, unspecified COPD with exacerbation (CMS/HCC) Chronic bronchitis, unspecified chronic bronchitis type (CMS/HCC) Hypoxia Hypoxemia Primary hypertension Unspecified essential hypertension Sacroiliac joint disease Back spasm Other symptoms referable to back Left-sided face pain Headache documented in this encounter Additional Health Concerns Assessment Noted Time PHQ-9 Depression Total Score: 0 05/16/19 25 1:44 PM EDT A fall risk assessment has been complete d for the patient 05/15/2024 1:45 PM EDT A Body Mass Index follow-up plan has been documented for the patient 05/15/2024 4:03 PM EDT documented as of this encounter Care Teams Supervisor Melt House Relationship Specialty Start Date End Date Omayra Chadwick MD [address] [place] [address] PCP - General 07/18/20 documented as of this encounter
--- OUTSIDE RECORDS SUMMARY | 2025-01-25 14:16 | XMS_ITS | Encounter Summary ---
Author Organization Healthcare Address [address] [place] [address] Care Team Providers Care Charter And Tour Bus Driver Name Role Phone Omayra Chadwick MD Primary Care Provider [phone] Annalise Alejo PREVENTATIVE MAINTENANCE TECHNICIAN Unavailable Unavailab Concepcion Mishra PREVENTATIVE MAINTENANCE TECHNICIAN Unavailable Unavailabl e Encounter Details Date Type Department Care Team (Late st Contact Info) Description 02/05/2021 Outside Procedure External Location [address] [place] [address] Provider, [facility] Social History Tobacco Use Types Packs/Day Years [...] Procedure Name Priority Date/Time Associated Diagnosis Comments XR CHEST 2 VIEWS 02/05/2021 12:3 1 PM EST documented in this encounter Results * XR Chest 2 Views (02/05/2021 12:31 PM EST) Anatomical Region Laterality Modality Chest Radiographic Mirian ging 02/05/2021 12:3 1 PM EST Narrative 02/05/2021 1:53 PM EST [address] [place] [address] Name: MICHELE CLANCY Exam Date: 02/05/2021 : 1950 Age 70 Gender: F Physician: SINAN CARTER Facility: [facility] Facility HSV: Outpatient Exam: CHEST 2 VIEWS CHEST, 2 view HISTORY: Shortness of breath COMPARISON: 03/11/2011. FINDINGS: No focal lung consolidation. There is no evidence of effusion or other pleural disease. The mediastinum has a normal appearance. The cardiac silhouette is unremarkable. IMPRESSION: No acute cardiopulmonary process. Dictated By: Mark Cruz Transcribed By: Mark House Transcribed On: 02/05/2021 1:42 PM Electronically signed by: Mark Cruz 02/05/2021 Thank you for referring MICHELE CLANCY to [facility]. Legally authenticated by OLIVER BOLAÑOS 2021-02-05 13:42:26 Procedure Note Provider, [facility] - 02/05/2021 [place] [address] Name: MICHELE CLANCY Exam Date: 02/05/2021 : 1950 Age 70 Gender: F Physician: SINAN CARTER Facility: [facility] Facility HSV: Outpatient Exam: CHEST 2 VIEWS CHEST, 2 view HISTORY: Shortness of breath COMPARISON: 03/11/2011. FINDINGS: No focal lung consolidation. There is no evidence of effusion or other pleural disease. The mediastinumhas a normal appearance. The cardiac silhouette is unremarkable. IMPRESSION: No acute cardiopulmonary process. Dictated By: Mark Cruz Transcribed By: Mark House Transcribed On: 02/05/2021 1:42 PM Electronically signed by: Mark Cruz 02/05/2021 Thank you for referring MICHELE CLANCY to [facility]. Legally authenticated by OLIVER BOLAÑOS 2021-02-05 13:42:26 [facility] Provider IMG XR PROCEDURES Fi nal Result documented in this encounter Visit Diagnoses Not on filedocumented in this encounter Care Teams Charter And Tour Bus Driver Relationship Specialty Start Date End Date Omayra Chadwick MD [address] [place] [address] PCP - General 07/18/20 Annalise Alejo LPN VALUE-BASED TRANSFORMATION PROGRAM None Licensed Practical Nurse 12/08/22 3 Concepcion Horner LPN VALUE[employer] [address] None Licensed Practical Nurse 09/01/23 09/30/23 documented as of this encounter
--- OUTSIDE RECORDS SUMMARY | 2025-01-25 14:16 | XMS_ITS | Encounter Summary ---
Author Organization Healthcare Address [address] [place] [address] Care Team Providers Care Horse Stud Manager Name Role Phone Omayra Chadwick MD Primary Care Provider [phone] Annalise Alejo SUPERVISOR INSTANT POTATO PROCESSING Unavailable Unavailab Concepcion Mishra SUPERVISOR INSTANT POTATO PROCESSING Unavailable Unavailabl e Encounter Details Date Type Department Care Team (Late st Contact Info) Description 07/28/2022 Outside Procedure External Location [address] [place] [address] Omayra Chadwick MD [address] [place] [address] Social History Tobacco Use Types Packs/Day Years Used Date Smoking Tobacco: Former Cigarettes 1.5 30 1 2009 Smokeless Tobacco: Never PHQ-2 Answer Date Recorded Patient Health Questionnaire-2 Score 0 06/30/2022 Comments Unknown Sex and Gender Information Value Date Recorded Sex Assigned at Not on file Legal Sex Female 8:44 PM EDT Gender Identity Not on file Sexual Orientation Not on file COVID-19 Exposure Response Date Recorded In the last 10 days, have yo u been in contact with someone who was confirmed or suspected to have Coronavirus/COVID-19? No / Unsure 06/30/2022 12:33 PM EDT documented as of this encounter Plan of Treatment Not on file documented as of this encounter Procedures Procedure Name Priority Date/Time Associated Diagnosis Comments MAMMOGRAPHY BREAST SCREENING TOMOSYNTHESIS BILATERAL 07/28/2022 2:41 PM EDT documented in this encounter Results * Mammography Breast Screening Tomosynthesis Bilateral (07/28/2022 2:41 PM EDT) Anatomical Region Laterality Modality Breast Bilateral Mammography 07/28/2022 2:41 PM EDT Narrative 07/29/2022 7:10 [place] [address] Name: GINA CLANCY Exam Date: 07/28/2022 : 1950 Age 72 Gender: F Physician: OMAYRA SPENCER Facility: [facility] Facility HSV: Outpatient Exam: TANIA SCRN MAMMO W/CAD BILAT Bilateral digital screening mammogram with CAD and with breast tomosynthesis Findings: There are scattered areas of fibroglandular density. Prior exam dates 06/25/13. There has been some decrease in tissue density since the prior exam. There are scattered benign-appearing calcium deposits. There are no new or dominant densities within either breast. There are no areas of significant asymmetry or focal mammographic concern. Impression: BI-RADS 1, negative. Yearly follow-up mammography is recommended. This patient will be sent a letter from the mammography department with their mammography results. Dictated By: YURI NOLASCO Transcribed By: martha hanna Transcribed On: 07/28/2022 3:38 PM Electronically signed by: YURI NOLASCO 07/29/2022 Thank you for referring GINA CLANCY to [facility]. Legally authenticated by GAURAV WELCH 2022-07-29 06:58:37 Procedure Note Provider, [facility] [place] - 07/29/2022 [place] [address] Name: GINA CLANCY Exam Date: 07/28/2022 : 1950 Age 72 Gender: F Physician: OMAYRA SPENCER Facility: [facility] Facility HSV: Outpatient Exam: TANIA SCRN MAMMO W/CAD BILAT Bilateral digital screening mammogram with CAD and with breasttomosynthesis Findings: There are scattered areas of fibroglandular density. Priorexam dates 06/25/13. There has been some decrease in tissue density since theprior exam. There are scattered benign-appearing calcium deposits. There areno new or dominant densities within either breast. There are no areas of significant asymmetry or focal mammographic concern. Impression: BI-RADS 1, negative. Yearly follow-up mammography is recommended. This patient will be sent a letter from the mammography department withtheir mammography results. Dictated By: YURI NOLASCO Transcribed By: martha hanna Transcribed On: 07/28/2022 3:38 PM Electronically signed by: YURI NOLASCO 07/29/2022 Thank you for referring GINA CLANCY to [facility]. Legally authenticated by GAURAV WELCH 2022-07-29 06:58:37 Omayra Chadwick MD IMG BI PROCEDURES Final Result documented in this encounter Visit Diagnoses Not on filedocumented in this encounter Additional Health Concerns Assessment Noted Time A fall risk assessment has been complete d for the patient 06/30/2022 12:37 PM EDT A Body Mass Index follow-up plan has been documented for the patient 06/30/2022 1:28 PM EDT documented as of this encounter Care Teams Horse Stud Manager Relationship Specialty Start Date End Date Omayra Chadwick MD [address] [place] [id number] PCP - General 07/18/20 Annalise Alejo LPN VALUE-BASED TRANSFORMATION PROGRAM None Licensed Practical Nurse 12/08/22 3 Concepcion Horner LPN VALUE-BASED [place] [address] None Licensed Practical Nurse 09/01/23 09/30/23 documented as of this encounter
--- OUTSIDE RECORDS SUMMARY | 2025-01-25 14:16 | XMS_ITS | Encounter Summary ---
Author Organization Healthcare Address [address] [place] [address] Care Team Providers Care Wall Washer Name Role Phone Omayra Chadwick MD Primary Care Provider [phone] Reason for Visit * Reason Comments Med Refill Encounter Details Date Type Department Care Team (Late st Contact Info) Description 12/07/2024 Refill [facility] [address] [place] [address] Omayra Chadwick MD [address] [place] [address] Other hyperlipidemia; Primary hypertension Social History Tobacco Use Types Packs/Day Years Used Date Smoking Tobacco: Former Cigarettes 1.5 30 2009 Smokeless Tobacco: Never Humiliation, Afraid, Rape, [...] Recorded Patient Health Questionnaire-2 Score 0 05/15/2024 [facility] - Occupational Stress Questionnaire Answer Date Recorded [...] place to sleep or slept in a senior living (including now)? No 09/06/2023 PHQ-9 Answer Date [...] any time in the past 12 m [facility], were you homeless or living in a senior living (including now)? No 05/15/2024 Utilities Answer Date Recorded In the past 12 months has e electric, gas, oil, or water company [...] encounter Miscellaneous Notes * Telephone Encounter - Diego Sanchez, PharmD - 12/11/2024 1:30 PM EDT 2 medication(s) has been approved per protocol. documented in this encounter Plan of Treatment Not on file documented as of this encounter Visit Diagnoses Diagnosis Other hyperlipidemia Primary hypertension Unspecified essential hypertension documented in this encounter Additional Health Concerns Assessment Noted Time PHQ-9 Depression Total Score: 0 05/16/19 25 1:44 PM EDT A fall risk assessment has been complete d for the patient 05/15/2024 1:45 PM EDT A Body Mass Index follow-up plan has been documented for the patient 05/15/2024 4:03 PM EDT documented as of this encounter Care Teams Wall Washer Relationship Specialty Start Date End Date Omayra Chadwick MD [address] [phone] PCP - General 07/18/20 documented as of this encounter
[2025-01-25 14:18] VITALS: BP 134/65; BP 166/81; PULSE 70; PULSE 75; RESP 19; TEMP 37.1; O2SAT 93; O2SAT 94; BMI 30.2
[2025-01-25 14:30] VITALS: BP 129/59; PULSE 62; O2SAT 92
[2025-01-25 14:45] VITALS: BP 134/59; PULSE 55; O2SAT 93
[2025-01-25 15:00] VITALS: BP 122/63; PULSE 61; O2SAT 95
[2025-01-25 15:10] VITALS: BP 122/63; PULSE 60; RESP 16; TEMP 36.6; O2SAT 94
== END 2025-01-25 15:22 | disposition home or self-care (01) ==
PROVIDERS: Emergency Provider Student in an Organized Health Care Education/Training Program; PCP Family Medicine
DX: S93.402A Sprain of unspecified ligament of left ankle, initial encounter (principal); X50.0XXA Overexertion from strenuous movement or load, initial encounter
CPT/HCPCS: 73560; 73600; 99284

== ENCOUNTER 2025-02-04 14:00 | Outpatient (CLI) | payer MEDICARE, SELFPAY ==
[2025-02-04 21:33] LABS: Coronavirus 19, PCR Not Detected (NotDetected); Influenza A, PCR Not Detected (NotDetected); Influenza B, PCR Not Detected (NotDetected)
--- OUTSIDE RECORDS SUMMARY | 2025-02-05 13:56 | XMS_ITS | Encounter Summary ---
Author Organization Healthcare Address [address] [place] [address] Care Team Providers Care Inspector Plug Seam Name Role Phone Omayra Chadwick MD Primary Care Provider [phone] Annalise Alejo LEGAL SERVICE SPECIALIST Unavailable Unavailab Concepcion Mishra LEGAL SERVICE SPECIALIST Unavailable Unavailabl e Encounter Details Date Type Department Care Team (Late st Contact Info) Description 02/06/2021 Outside Procedure External Location [address] [place] [address] Omayra Chadwick MD [address] [place] [address] Social History Tobacco Use Types Packs/Day [...] PM EST Narrative 02/10/2021 1:42 PM EST [address] [address] Name: MICHELE CLANCY Exam Date: 02/06/2021 : 1950 Age 70 Gender: F Physician: OMAYRA SPENCER Facility: [facility] Facility HSV: Outpatient Exam: ECHO W SPEC [...] There is no aortic stenosis. AV peak dfpunicw=164qy/sec. There is trace aortic regurgitation. Tricuspid valve: [...] Thank you for referring MICHELE CLANCY to [facility]. Legally authenticated by HEENA Barcenas 2021-02-10 13:31:37 Procedure Note Provider, [facility] - 02/10/2021 [place] [address] Name: MICHELE CLANCY Exam Date: 02/06/2021 : 1950 Age 70 Gender: F Physician: OMAYRA SPENCER Facility: [facility] Facility HSV: Outpatient Exam: ECHO W SPEC [...] There is no aortic stenosis. AV peak wvdurudu=686hw/sec. There is trace aortic regurgitation. Tricuspid valve: [...] Thank you for referring KAREEN MICHELE to [facility]. Legally authenticated by HEENA Barcenas 2021-02-10 13:31:37 us Omayra Chadwick MD CV ECHO PROCEDURES Final Resul t documented in this encounter Visit Diagnoses Not on filedocumented in this encounter Care Teams Inspector Plug Seam Relationship Specialty Start Date End Date Omayra Chadwick MD [address] [place] [address] PCP - General 07/18/20 Annalise Alejo LPN VALUE-BASED TRANSFORMATION PROGRAM None Licensed Practical Nurse 12/08/22 3 Concepcion Horner LPN VALUE-BASED [place] [address] None Licensed Practical Nurse 09/01/23 09/30/23 documented as of this encounter
--- OUTSIDE RECORDS SUMMARY | 2025-02-05 13:56 | XMS_ITS | Encounter Summary ---
Author Organization Healthcare Address [address] [place] [address] Care Team Providers Care Installation And Repair Technician Name Role Phone Omayra Chadwick MD Primary Care Provider [phone] Annalise Alejo SUPERVISOR STONE Unavailable Unavailab Concepcion Mishra SUPERVISOR STONE Unavailable Unavailabl e Encounter Details Date Type Department Care Team (Late st Contact Info) Description 02/05/2021 Outside Procedure External Location [address] [place] [address] Provider, [facility] Social History Tobacco Use Types Packs/Day Years [...] PM EST Narrative 02/05/2021 1:53 PM EST [address] [place] [address] Name: MICHELE CLANCY Exam Date: 02/05/2021 : [...] Thank you for referring MICHELE CLANCY to [facility]. Legally authenticated by OLIVER BOLAÑOS 2021-02-05 13:42:26 Procedure Note Provider, [facility] - 02/05/2021 [place] [address] Name: MICHELE CLANCY Exam Date: 02/05/2021 : [...] Thank you for referring MICHELE CLANCY to [facility]. Legally authenticated by OLIVER BOLAÑOS 2021-02-05 13:42:26 [facility] Provider IMG XR PROCEDURES Fi nal Result documented in this encounter Visit Diagnoses Not on filedocumented in this encounter Care Teams Installation And Repair Technician Relationship Specialty Start Date End Date Omayra Chadwick MD [address] [place] [address] PCP - General 07/18/20 Annalise Alejo LPN VALUE-BASED TRANSFORMATION PROGRAM None Licensed Practical Nurse 12/08/22 3 Concepcion Horner LPN VALUE-BASED [place] [address] None Licensed Practical Nurse 09/01/23 09/30/23 documented as of this encounter
--- OUTSIDE RECORDS SUMMARY | 2025-02-05 13:56 | XMS_ITS | Encounter Summary ---
Author Organization Healthcare Address [address] [place] [address] Care Team Providers Care Catalog Specialist Name Role Phone Omayra Chadwick MD Primary Care Provider Reason for Visit * Reason Comments Med Refill Encounter Details Date Type Department Care Team (Late st Contact Info) Description 12/07/2024 Refill [facility] [address] [place] [address] Omayra Chadwick MD [address] [place] [address] Other hyperlipidemia; Primary hypertension Social [...] Recorded Patient Health Questionnaire-2 Score 0 05/15/2024 [facility] of Occupat ional Health - Occupational Stress [...] place to sleep or slept in a [place] (including now)? No 09/06/2023 PHQ-9 Answer Date [...] were you homeless or living in a [place] (including now)? No 05/15/2024 Utilities Answer Date [...] documented as of this encounter Care Teams Catalog Specialist Relationship Specialty Start Date End Date Omayra Chadwick MD [address] [place] [phone] PCP - General 07/18/20 documented as of this encounter
--- OUTSIDE RECORDS SUMMARY | 2025-02-05 13:56 | XMS_ITS | Encounter Summary ---
Author Organization Healthcare Address [address] [place] [address] Care Team Providers Care Rn Licensed Practical Name Role Phone Omayra Chadwick MD Primary Care Provider [phone] Annalise Alejo TRANSCRIPTION TYPIST Unavailable Unavailab Concepcion Mishra TRANSCRIPTION TYPIST Unavailable Unavailabl e Encounter Details Date Type Department Care Team (Late st Contact Info) Description 12/31/2020 Outside Procedure External Location [address] [place] [address] Provider, Jamie Sandoval Social History Tobacco Use Types Packs/Day Years [...] all 12/31/2020 12:24 PM EDT Kandi Isidro Feeling down, depressed, or hopeless Not at [...] Computed Tomogra phy 12/31/2020 1:40 PM EDT [facility] Provider IMG CT PROCEDURES Fi nal Result documented in this encounter Visit Diagnoses Not on filedocumented in this encounter Care Teams Rn Licensed Practical Relationship Specialty Start Date End Date Omayra Chadwick MD [address] [place] [address] PCP - General 07/18/20 Annalise Alejo LPN VALUE-BASED TRANSFORMATION PROGRAM None Licensed Practical Nurse 12/08/22 3 Concepcion Horner LPN VALUE-[place]ED [place] [address] None Licensed Practical Nurse 09/01/23 09/30/23 documented as of this encounter
--- OUTSIDE RECORDS SUMMARY | 2025-02-05 13:56 | XMS_ITS | Clinical Summary ---
Author Organization Healthcare Address [address] [place] [address] Care Team Providers Care General Scrap Worker Name Role Phone Omayra Chadwick MD Primary Care Provider [phone] Allergies Active Allergy Reactions Criticality Noted Date [...] Encounters Date Type Department Care Team Description 02/04/2025 Telephone [facility] [address] [place] [address] Omayra Chadwick MD HCN Clinical Concern/Question 12/11/2024 Refill [facility] [address] [place] [address] Omayra Chadwick MD Anxiety; COPD with exacerbation (CMS/HCC); Chronic bronchitis, unspecified chronic bronchitis type (CMS/HCC); Hypoxia; Primary hypertension; Sacroiliac joint disease; Back spasm; Left-sided face pain 12/07/2024 Refill [facility] [address] [place] [address] Omayra Chadwick MD Other hyperlipidemia; [...] Smoking Tobacco: Former Cigarettes 1.5 30 1 980 - 2009 Smokeless Tobacco: Never Tobacco Cessation:Counseling Given: [...] Recorded Patient Health Questionnaire-2 Score 0 05/15/2024 [facility] of Occupat ional Health - Occupational Stress [...] place to sleep or slept in a fci (including now)? No 09/06/2023 PHQ-9 Answer Date [...] any time in the past 12 m [facility], were you homeless or living in a fci (including now)? No 05/15/2024 Utilities Answer Date Recorded In the past 12 months has e [employer], gas, oil, or water [employer] threatened to shut off services in your [...] SDOH Screenings 1966 UKY-Adult SDOH Screenings 1966 [id number] Vaccine ( season) 2024 03/20/2021, 08/30/2020, 08/02/2020 [...] PM EDT Routine general medical examination at [facility] CT ANGIO CHEST 12/31/2020 1:40 PM EDT COLONOSCOPY EXTERNAL RESULT 04/02/2019 from Last 3 Months or Most Recently Relevant to Health Maintenance Results * Mammography External Results (11/29/2023) Anatomical Region Laterality Modality Mammography Narrative 11/29/2023 Ordered by an unspecified provider. External Provider IMG BI PROCEDURES Final Result [...] Adults <6.0% Children and Adolescents <7.5% Source: [employer]. Standards of medical care in diabetes,2017. Diabetes Care.2017:40 (suppl 1):S1-S135. HbA1c assay performed by an ion-exchange chromatography method that is certified traceable to the DCCT. us Omayra Chadwick MD LAB BLOOD ORDERABLES Final Res ult [facility] [address] [place] [address] * CT Angio Chest (12/31/2020 1:40 PM EDT) Anatomical Region Laterality Modality Chest Computed Tomogra phy 12/31/2020 1:40 PM EDT us [facility] Provider IMG CT PROCEDURES Fi nal Result * COLONOSCOPY EXTERNAL RESULT (04/02/2019) Anatomical Region Laterality Modality Endoscopy Narrative 04/02/2019 Ordered by an unspecified provider. us External Provider GI PROCEDURE ORDERABLES Final Result from Last 3 Months or Most Recently Relevant to Health Maintenance Insurance [employer] Care Teams General Scrap Worker Relationship Specialty Start Date End Date Omayra Chadwick MD [address] [place] [address] PCP - General 07/18/20
--- OUTSIDE RECORDS SUMMARY | 2025-02-05 13:56 | XMS_ITS | Encounter Summary ---
Author Organization Healthcare Address [address] [place] [address] Care Team Providers Care C D Still Operator Name Role Phone Omayra Chadwick MD Primary Care Provider [phone] Annalise Alejo EMERGENCY MEDICAL DISPATCHER Unavailable Unavailab Concepcion Mishra EMERGENCY MEDICAL DISPATCHER Unavailable Unavailabl e Encounter Details Date Type Department Care Team (Late st Contact Info) Description 07/28/2022 Outside Procedure External Location [address] [place] [address] Omayra Chadwick MD [address] [place] [address] Social History Tobacco Use Types Packs/Day Years Used Date Smoking Tobacco: Former Cigarettes 1.5 30 1 - 2009 Smokeless Tobacco: Never PHQ-2 Answer Date [...] PM EDT Narrative 07/29/2022 7:10 [place] [address] Name: GINA CLANCY Exam Date: 07/28/2022 : 1950 Age 72 Gender: F Physician: OMAYRA SPENCER Facility: [facility] Facility HSV: Outpatient Exam: TANIA SCRN MAMMO [...] Thank you for referring GINA CLANCY to [facility]. Legally authenticated by GAURAV WELCH 2022-07-29 06:58:37 Procedure Note Provider, [facility] - 07/29/2022 [place] [address] Name: GINA CLANCY Exam Date: 07/28/2022 : 1950 Age 72 Gender: F Physician: OMAYRA SPENCER Facility: [facility] Facility HSV: Outpatient Exam: TANIA SCRN MAMMO [...] Thank you for referring GINA CLANCY to [facility]. Legally authenticated by GAURAV WELCH 2022-07-29 [...] documented as of this encounter Care Teams C D Still Operator Relationship Specialty Start Date End Date Omayra Chadwick MD [address] [place] [phone] PCP - General 07/18/20 Annalise Alejo LPN VALUE-BASED TRANSFORMATION PROGRAM None Licensed Practical Nurse 12/08/22 3 Concepcion Horner LPN VALUE-[place] [address] None Licensed Practical Nurse 09/01/23 09/30/23 documented as of this encounter
--- OUTSIDE RECORDS SUMMARY | 2025-02-05 13:56 | XMS_ITS | Encounter Summary ---
Author Organization Healthcare Address [address] [place] [address] Care Team Providers Care Natural Gas Technician Name Role Phone Omayra Chadwick MD Primary Care Provider [phone] Reason for Visit * Reason Onset Date Comments HCN Clinical Concern/Question 02/04/2025 Encounter Details Date Type Department Care Team (Late st Contact Info) Description 02/04/2025 Telephone [facility] & [address] [address] Omayra Chadwick MD [address] [place] [address] HCN Clinical Concern/Question Social History Tobacco Use Types Packs/Day Years [...] Recorded Patient Health Questionnaire-2 Score 0 05/15/2024 [facility] of Occupat ional Health - Occupational Stress [...] any time in the past 12 m [facility], were you homeless or living in [...] encounter Miscellaneous Notes * Telephone Encounter - Kacey Mancia - 02/04/2025 3:16 PM EST Pt no longer needs to be seen, PT was seen at [facility] * Telephone Encounter - Johan Reyes - 02/04/2025 11:09 AM EST Clinical Concern/Question Reason for Call: declined scheduling last visit was May 2024 / wanting prednisone and z pack called in/ nurse return Best contact number: [phone] (mobile) Optimal time of day to reach caller: ANYTIME Additional comments/information from caller: None Note: Please do not reply to this message. Follow-up communication and further actions as a result of this message need to be communicated with the patient directly, if the patient is not active onMyChart. If the patient is active on MyChart, they will receive notification of the communication/outcome via [employer]. documented in this encounter Plan of Treatment Not on file documented as of this encounter Visit Diagnoses Not on filedocumented [...] documented as of this encounter Care Teams Natural Gas Technician Relationship Specialty Start Date End Date Omayra Chadwick MD [address] [place] [phone] PCP - General 07/18/20 documented as of this encounter
--- OUTSIDE RECORDS SUMMARY | 2025-02-05 13:56 | XMS_ITS | Encounter Summary ---
Author Organization Healthcare Address [address] [place] [address] Care Team Providers Care Azure Architect Name Role Phone Omayra Chadwick MD Primary Care Provider [phone] Reason for Visit * Reason Onset Date Comments Med Refill 12/11/2024 Encounter Details Date Type Department Care Team (Late st Contact Info) Description 12/11/2024 Refill [facility] [address] [place] [address] Omayra Chadwick MD [address] [place] [address] Anxiety; COPD with exacerbation (CMS/HCC); [...] Recorded Patient Health Questionnaire-2 Score 0 05/15/2024 [facility] - Occupational Stress Questionnaire Answer Date [...] place to sleep or slept in a prison (including now)? No 09/06/2023 PHQ-9 Answer Date [...] any time in the past 12 m [facility], were you homeless or living in a prison (including now)? No 05/15/2024 Utilities Answer Date [...] documented as of this encounter Care Teams Azure Architect Relationship Specialty Start Date End Date Omayra Chadwick MD [address] [place] [address] PCP - General 07/18/20 documented as of this encounter
== END 2025-02-04 23:59 | disposition home or self-care (01) ==
LOC: LAB.DROPOF 02-05 13:54
PROVIDERS: PCP Family Medicine; Visit Provider Nurse Practitioner
DX: J06.9 Acute upper respiratory infection, unspecified (principal)
CPT/HCPCS: 87631